=== PATIENT | female | born 1945 | race Caucasian/White ===

== ENCOUNTER 2018-08-08 04:48 | Emergency (ER) | payer OTHER ==
[~2018-08-08] VITALS: Ht 162.6 cm; Wt 81.7 kg
[~2018-08-08 04:48] MED LIST: ASPIR 8181 MG PO; ASPIRIN EC325 M1 PO; ATORVASTATIN CA40 MG PO; CARAFATE 1 GM TA1 G1 PO; CLONIDINE HCL0.2 M2 PO; DOXYCYCLINE 10100 M1; DOXYCYCLINE 10100 MG PO; HYDROCHLOROTHIA25 M2 PO; LOPRESSOR25 PO; NICOTINE TRANSD21 M1 TRANSDERM; NITROGLYCERIN0.4 MG SUBLING; PERCOCET 5-3251 EACH PO; PLAVIX 75 MG TA75 M1 PO; PROTONIX40 M1 PO; TYLENOL325 MG PO
[2018-08-08] MEDS ORDERED: HYDROCHLOROTHIA25 M2 (04:59)
[2018-08-08 05:15] LABS: ABSOLUTE BASOPHILS 0.1 thou/uL (0.0-0.2); ABSOLUTE EOSINOPHILS 0.1 thou/uL (0.0-0.7); ABSOLUTE LYMPHOCYTES 1.2 thou/uL (0.8-5.3); ABSOLUTE MONOCYTES 0.4 thou/uL (0.0-1.2); ABSOLUTE NEUTROPHILS 4.9 thou/uL (1.6-8.1); BASOPHILS 0.9 %; HEMATOCRIT 49.2 % (37.0-47.0); HEMOGLOBIN 16.5 gm/dL (12.0-15.0); LYMPHOCYTES 17.6 %; MCH 28.7 pg (26.0-34.0); MCHC 33.6 g/dL (28.0-37.0); MCV 85.3 fL (80.0-100.0); MPV 8.7 fl. (7.2-11.1); NUCLEATED RBCS 0 /100WBC; PLATELET COUNT* 207 thou/uL (150-400); POLYS 74.5 %; RBC 5.77 mil/uL (4.20-5.00); RDW-CV 15.9 % (10.5-14.5); WBC 6.5 thou/uL (4.0-11.0)
[2018-08-08 05:24] LABS: CREATININE 1.2 mg/dL (0.6-1.3); POTASSIUM 3.2 mmol/L (3.5-5.1)
[2018-08-08 05:29] LABS: ALBUMIN 3.4 g/dL (3.4-5.0); TOTAL BILIRUBIN 0.8 mg/dL (<0.1-1.0); TOTAL PROTEIN 7.2 g/dL (6.4-8.2)
[2018-08-08 05:35] LABS: URINE BLOOD NEGATIVE (Negative); URINE CLARITY CLEAR; URINE COLOR YELLOW; URINE GLUCOSE-RANDOM NEGATIVE (Negative); URINE KETONES TRACE (Negative); URINE LEUKOCYTES-REFLEX TRACE (Negative); URINE NITRITE-REFLEX NEGATIVE (Negative); URINE PROTEIN NEGATIVE (Negative); URINE SPECIFIC GRAVITY 1.025 (1.005-1.030); URINE UROBILINOGEN 0.2 E.U./dl (0.2-1.0)
[2018-08-08 05:37] LABS: ICTOTEST (BILI CONFIRMATORY) Negative (Negative); URINE BILIRUBIN 1+ (Negative)
[2018-08-08 05:45] LABS: CRYSTALS None Seen /LPF (None Seen); HYALINE CASTS 0-3 Few /LPF (None Seen); MUCUS 4-6 Moderate strn/LPF (None Seen); SQUAMOUS 4-10 Moderate /LPF (0-3); URINE RBC 0-2 Rare /HPF (0-2); URINE WBC-REFLEX 0-5 Rare /HPF (0-5)
[2018-08-08] MEDS ORDERED: MACROBID 100 M100 M1 PO (06:08)
[2018-08-08 06:31] VITALS: BP 141/47
== END 2018-08-08 06:31 | disposition home or self-care (01) ==
LOC: M.ERS 04:48
PROVIDERS: Personal Emergency Response Attendant
DX: N23 Unspecified renal colic (principal); N13.30 Unspecified hydronephrosis; F17.210 Nicotine dependence, cigarettes, uncomplicated; Z88.0 Allergy status to penicillin; Z88.2 Allergy status to sulfonamides

== ENCOUNTER 2019-12-22 07:43 | Observation (INO) | payer OTHER ==
[~2019-12-22] VITALS: Ht 162.6 cm; Wt 72.6 kg
[2019-12-22 07:43] VITALS: BP 179/63
[~2019-12-22 07:43] MED LIST changes: -ATORVASTATIN CA40 MG PO; +LIPITOR40 MG PO; +MACROBID 100 M100 M1 PO
[2019-12-22] MEDS ORDERED: KLOR-CON M2020 MEQ PO (07:50)
[2019-12-22 08:48] LABS: ABSOLUTE LYMPHOCYTES 0.7 thou/uL (0.8-5.3); ABSOLUTE MONOCYTES 0.5 thou/uL (0.0-1.2); ABSOLUTE NEUTROPHILS 5.3 thou/uL (1.6-8.1); BASOPHILS 0.7 %; EOSINOPHILS 0.7 %; HEMATOCRIT 44.5 % (37.0-47.0); HEMOGLOBIN 14.9 gm/dL (12.0-15.0); LYMPHOCYTES 11.4 %; MCH 27.1 pg (26.0-34.0); MCHC 33.4 g/dL (28.0-37.0); MCV 80.9 fL (80.0-100.0); MPV 8.9 fl. (7.2-11.1); NUCLEATED RBCS 0 /100WBC; PLATELET COUNT* 208 thou/uL (150-400); POLYS 80.2 %; RDW-CV 15.5 % (10.5-14.5); WBC 6.5 thou/uL (4.0-11.0)
[2019-12-22 08:50] LABS: CALCIUM 8.2 mg/dL (8.5-10.1); CREATININE 0.8 mg/dL (0.6-1.3); POTASSIUM 3.2 mmol/L (3.5-5.1)
[2019-12-22 09:01] LABS: ALBUMIN 2.9 g/dL (3.4-5.0); MAGNESIUM 2.2 mg/dL (1.8-2.4); TOTAL BILIRUBIN 0.6 mg/dL (<0.1-1.0); TOTAL PROTEIN 6.2 g/dL (6.4-8.2)
--- NOTE | 2019-12-22 15:40 | EKG ---
[place] [address] ELECTROCARDIOGRAM REPORT Name: TJ AGUILERA Room: [place] [address] ADM IN [facility]#: [id number] Admission: 12/22/19 Attend Phys: Dennys Ovalles, Discharge: Date of : 45 Date of Service: 12/22/19 0745 Report #: [id number] THIS REPORT FOR: //name// [facility] ED Test Date: 2019-12-22 Test Time: 07:45:45 Pat Name: TJ AGUILERA Department: Room: [facility] Gender: F Nurse Discharge Planner: ORTIZ : 1945 Requested By: Brayan Neal Order Number: [id number] MD: Levon Singh Measurements Intervals [place] Rate: 60 P: 53 [place]: 152 QRS: 66 QRSD: 86 T: 23 QT: 400 QTc: 400 Interpretive Statements Sinus rhythm Probable left atrial enlargement Compared to ECG 09/08/2016 08:31:53 T-wave abnormality less prominent Electronically Signed On 12-22-2019 15:39:32 CDT by Levon Singh [email or web address] <ELECTRONICALLY SIGNED> By: Levon Singh MD, [facility] 12/22/19 1539 0745 0745 Levon Singh MD, [facility] /EPI
[2019-12-22 15:58] VITALS: BP 158/61
--- NOTE | 2019-12-22 16:41 | NUR ---
PT ORIENTED TO ROOM AND UNIT. BED LOW AND LOCKED, SIDE RAILS UPX3, CALL LIGHT IN REACH, TELE APPLIED. WILL CONTINUE TO ASSESS.
[2019-12-22 21:14] VITALS: BP 138/51
[2019-12-23] VITALS: BP 152/66
[2019-12-23 04:00] VITALS: BP 148/64
[2019-12-23 05:11] LABS: CALCIUM 8.7 mg/dL (8.5-10.1); CREATININE 0.9 mg/dL (0.6-1.3); MAGNESIUM 2.2 mg/dL (1.8-2.4)
[2019-12-23 05:14] LABS: POTASSIUM 4.2 mmol/L (3.5-5.1)
--- NOTE | 2019-12-23 05:38 | NUR ---
PT IS ABLE TO COMMUNICATE HIS NEEDS TO STAFF EFFECTIVELY. HE HAS DENIED THE NEED FOR PAIN MEDICATION UP TO THIS TIME. PT HAD SHORT RUN OF SVT DURING THIS SHIFT, STRIP IS ON THE CHART; MD NOT PAGED RHYTHM WAS NOT SUSTAINED AND PT SLEPT THROUGH IT AND WAS ASYMPTOMATIC UPON WAKEING. POSSIBLE DISCHARGE TODAY.
--- NOTE | 2019-12-23 05:51 | NUR ---
PT IS ABLE TO COMMUNICATE HER NEEDS TO STAFF EFFECTIVELY. CURRENT PAIN MEDICATION REGIMEN HAS BEEN ADEQUATE FOR CONTROLLING HER PAIN UP TO THIS TIME. SHE HAS BEEN NPO SINCE MIDNIGHT FOR A POSSIBLE STRESS TEST LATER TODAY.
[2019-12-23 08:00] VITALS: BP 133/60
[2019-12-23] MEDS ORDERED: NITROGLYCERIN0.4 MG SUBLING (10:33)
[2019-12-23 11:05] VITALS: BP 133/60
[2019-12-23 12:39] VITALS: BP 133/60
--- NOTE | 2019-12-29 19:48 | CON ---
[address] [address] CONSULTATION Name: TJ AGUILERA James Room: [address] [place] Aleman#: [id number] Admission: 12/22/19 Attend Phys: Dennys Ovalles MD Discharge: 12/23/19 Date of : 45 Report #: [id number] THIS REPORT FOR: //name// cc: KATYA BANGURA MD, HEATHER L. MD ~ THIS REPORT FOR: //name// CC: KATYA Ovalles DATE OF SERVICE: 12/22/2019 REQUESTING PHYSICIAN: Consult has been requested by the Dr. Ovalles. INDICATION FOR CONSULTATION: Lung mass. HISTORY OF PRESENT ILLNESS: A 74-year-old female with past medical history includes a history of coronary artery disease as well as COPD. The patient is followed by her primary care physician for COPD and is treated with Stiolto Respimat at home. She has never been on oxygen or prednisone at home alf. The patient has had coronary stents in the past and takes Plavix as well as metoprolol at home as well. The patient is now here with a complaint of chest pain, which began yesterday. The patient describes this as being a significant heaviness behind the sternum. She describes this as a weight on her chest. She describes this as being not associated with respiration and coughing. The patient also reported that she has had an increase in shortness of breath since around the same position. The patient has not been complaining of orthopnea. She has had troponin I's performed, which are not elevated. She has not been coughing anymore than usual. There is no sputum. She does not have upper respiratory complaints. There is no swelling of lower extremities. She has had some body aches and leg pain; however, these are not more than her baseline. The patient reports that she has been having diarrhea for the last month or so, which she attributes to a new prescription of potassium. The patient was screened for COVID-19 on admission and was found to be negative. She has had sleep complaints. She asleep in various positions. She does not have disturbed sleep at night. She at times feels sleepy and tired during the day; however, does not doze off. REVIEW OF SYSTEMS: I asked her 12 other questions for complete review of systems. The patient's review of systems is negative except as mentioned above. PAST MEDICAL HISTORY: Coronary artery disease, status post ST segment elevation [place] in 2017. The patient is reported to have had drug-eluting stents in the past. The patient is reported to be on metoprolol as well as Plavix for coronary artery disease at home. I do not, however, [place] [id number] CONSULTATION Name: TJ AGUILERA Room: [address] [place]#: [id number] Admission: 12/22/19 Attend Phys: Dennys Ovalles MD Discharge: 12/23/19 Date of : 45 Report #: [id number] left ventricular ejection fraction available at this time. Also, history of COPD. The patient gives Stiolto Respimat at home and is followed by PCP, has now used oxygen at home. Hypertension, hyperlipidemia. HOME MEDICATIONS: [facility] and this is reviewed, includes, Plavix, Stiolto as well as metoprolol also recent addition of potassium for maintaining potassium with a prescription for hydrochlorothiazide as above. FAMILY HISTORY: There is history of heart disease in her family. ALLERGIES: PENICILLIN, SULFONAMIDE ANTIBIOTICS AND LOSARTAN ARE MENTIONED ALLERGIES. PHYSICAL EXAMINATION: GENERAL: She is alert, awake and oriented, does not appear to be in any distress at this time. VITAL SIGNS: The pulse of 62 and a blood pressure of 158/61. She is saturating 94%. She is not on supplemental oxygen. Respiratory rate was mildly elevated to 20. She is afebrile with a temperature of 36.8, body mass index is 27.5. HEENT: Head is normocephalic and atraumatic. Pupils are equal and reactive. There is no throat erythema. Airway is Mallampati 3. NECK: Does not show raised JVP, asymmetry, mass or lymph nodes. CHEST: Symmetrical expansion on inspection and palpation. On auscultation, breath sounds are bilaterally, decreased, but equal. No added sounds. HEART: Regular. There is no murmur. ABDOMEN: Soft and nontender. EXTREMITIES: Lower extremities show no edema, no calf tenderness. SKIN: Dry and intact. NEUROLOGICAL: Moves all extremities bilaterally, equally and spontaneously with no focal deficit identified. DIAGNOSTIC DATA: The patient did have a CTA chest performed. This was reviewed. I reviewed both the films and report. In summary, there is no pulmonary embolism. There is some vague radiopaque densities noted posteriorly and inferiorly. I, however, do not identify any definite infiltrate. There is a mass in the right lung, which is about 2.5 cm in size. She also has some right hilar lymphadenopathy. The patient's CBC and chemistries are in [facility]. These are reviewed. COVID screen was negative initially. LABORATORY DATA: The patient had a troponins performed 3 times of these were these are 0.06. ASSESSMENT AND PLAN: 1. Lung mass. The patient does have a large lung mass in the right lung. This is an incidental finding and likely has been present for some time. It appears unlikely that the patient's symptoms are related [place] [id number] CONSULTATION Name: TJ AGUILERA Room: [address] [place] Aleman#: [id number] Admission: 12/22/19 Attend Phys: Dennys Oavlles MD Discharge: 12/23/19 Date of : 45 Report #: [id number] Unfortunately, the configuration of this mass is consistent with a malignancy. A fungal infection will be much less likely, but possible etiology of this mass. The location of this mass is such that it cannot be approached by a regular bronchoscopy. It may be possible to approach this mass with bronchoscopy with navigation. Certainly, this mass does appear to be approachable using a CT-guided lung biopsy; however, it is noted that this mass is located deep and therefore, there will be a significant risk of pneumothorax. If a CT-guided biopsy is performed, it should, however, be possible to easily treat such as pneumothorax in most cases by placement of a chest tube for a few days. If any procedure has performed on the patient's chest. It will be highly desirable that Plavix is held first for 5-7 days where the patient appears to have unstable angina at this time. This, may however, not be advisable from a cardiac point of view. Therefore, I recommend evaluating and treating her for her symptoms, which appear to be of cardiac origin first. If no procedure involving administration of an IV dye, it is planned by Cardiology after waiting 48 hours since the last CTA chest being performed we can consider obtaining a CT of the abdomen and pelvis as well as a bone scan then assess as to whether any other more superficial lesions, which may be easier to biopsy at present. In case, an invasive procedure to evaluate this malignancy is not performed during this hospitalization. Then I strongly favor obtaining a PET scan soon after her discharge to evaluate this further. If no other more superficial lesions are identified by a PET scan and it is not advisable to hold Plavix for a week from a Cardiology point of view and evaluating this mass further may be a challenge. 2. Chronic obstructive pulmonary disease. The patient is an active smoker. It appears to me that she does have some bronchospasm; however, this may be her baseline. I do not see any definite evidence of chronic obstructive pulmonary disease exacerbation. Regardless in order to reduce stress on her heart rate went ahead and ordered 2 doses of Solu-Medrol. Based on her response additional amounts of steroids may also be needed. For now, I only ordered p.r.n. Xopenex. Note that the patient does take a long-acting beta-2 agonist as well as anticholinergic agent at home. Therefore, we may be inclined to start her on a regular scheduled nebulized bronchodilators as soon. 3. Chest pain and shortness of breath. The patient symptoms are consistent with unstable angina. The Cardiology service is on the case. Therefore, would defer management to them. 4. Daytime sleepiness/sleep disturbances. I have suspicion that the patient may have underlying obstructive sleep apnea, evaluation is deferred for now. We will plan on obtaining an outpatient sleep study or at least a nocturnal pulse oximetry later. [address] [address] CONSULTATION Name: TJ AGUILERA Room: [place] [address] [place] Aleman#: [id number] Admission: 12/22/19 Attend Phys: Dennys Ovalles MD Discharge: 12/23/19 Date of : 45 Report #: [id number] Thanks for this consultation. <ELECTRONICALLY SIGNED> By: Rajesh Salamanca MD 12/29/19 1948 22 2222Abarbara Salamanca MD /nt
== END 2019-12-23 13:10 | disposition home or self-care (01) ==
LOC: M.ERS 07:43 → M.TBA-ER 10:50 → M.2W 10:50
PROVIDERS: Emergency Medicine Emergency Medical Services; ADMIT Internal Medicine; ATTEND Internal Medicine
DX: I25.110 Atherosclerotic heart disease of native coronary artery with unstable angina pectoris (principal); E87.6 Hypokalemia; R91.8 Other nonspecific abnormal finding of lung field; R42 Dizziness and giddiness; I10 Essential (primary) hypertension; J44.9 Chronic obstructive pulmonary disease, unspecified; E78.5 Hyperlipidemia, unspecified; F17.210 Nicotine dependence, cigarettes, uncomplicated

== ENCOUNTER → 2019-12-27 | Outpatient (CLI) | payer OTHER ==
[~2019-12-27] MED LIST changes: +KLOR-CON M2020 MEQ PO
--- NOTE | 2019-12-27 16:46 | CARDNUC ---
[place] [address] CARDIAC NUCLEAR IMAGING REPORT Name: TJ AGUILERA Room: [facility]#: [id number] Admission: 12/27/19 Attend Phys: Petar Banda, Discharge: Date of : 45 Date of Service: 12/27/19 1646 Report #: [id number] THIS REPORT FOR: cc: KATYA BANGURA MD, HEATHER L. MD Liston, Michael J. MD [facility] ~ ADDENDUM APPROVED REPORT Study performed: 12/27/2019 14:53:12 Exam: Nuclear Stress Test Indication: Chest pain Patient Location: Out-Patient Stress Tech: Maryann Carvalho Stress Nurse: Jacinto Costa Tech:KNVG Gonsalez Ht: 5 ft 4 in Wt: 154 lbs BSA: 1.75 m2 BMI: 26.43 Medical History Medical History: CAD s/p DC, CAD s/p stent, Hyperlipidemia, HTN, Smoking Medications: Atorvastatin, Plavix, metoprolol tartrate, Nitrostat, clonidine, hydrochlorothiazide, potassium chloride Allergies: Losartan, penicillin, sulfa Cardiac Risk Factors: Age greater than 45, hyperlipidemia, hypertension, family history of coronary artery disease and tobacco use Previous Cardiac Procedures: PCI Meds Held (24 hrs): Metoprolol, Nitroglycerin Stress Test Details Stress Test: Pharmacologic stress was paired with low level exercise. Reason for pharmacologic stress test: Right knee weakness. HR Resting HR: 65 bpm Max Heart Rate (APMHR): 146 bpm Max HR Achieved: 119 bpm Target HR (85% APMHR): 124 bpm % of APMHR: 81 Recovery HR: 96 [place] [address] CARDIAC NUCLEAR IMAGING REPORT Name: TJ AGUILERA Room: [facility]#: [id number] Admission: 12/27/19 Attend Phys: Petar Banda, Discharge: Date of : 45 Date of Service: 12/27/19 1646 Report #: [id number] Resting BP: 175/77 mmHg Max BP: 180/71 mmHg ECG Resting ECG: Sinus Rhythm Stress ECG: Sinus Tachycardia ST Change: Horizontal ST depression Maximum ST Deviation: 0.5 mm Arrhythmia: None Recovery ECG: Sinus Rhythm Recovery ST Change: Horizontal ST depression Recovery ST Deviation: 0.5 mm Recovery Arrhythmia: None Clinical Reason for Termination: Completed protocol The patient had mild chest discomfort with walking Lexiscan protocol felt to be due to medication effect in light of myocardial perfusion imaging findings. Nurse Comments The patient was and able to walk a treadmill due to right knee weakness. Stress ECG Conclusion Baseline twelve-lead EKG shows sinus rhythm without significant ST segment or T wave abnormality. EKGs obtained during and post walking Lexiscan protocol show 0.[address] segment depression in the inferior leads. There were no stress-induced arrhythmias. NM EXAM: Myocardial Perfusion REST/STRESS Imaging Protocol: Rest Tc-99m/Stress Tc-99m 1 day Resting Data Rest SPECT myocardial perfusion imaging was performed in supine position 30 minutes following the intravenous injection of 10.0 mCi of Tc-99m Sestamibi. Time of rest injection: 1250 Date: 12/27/2019 The images were gated to evaluate regional wall motion and calculate left ventricular ejection fraction. Administration Route: IV Administration Site: Right Hand Pharmacologic Stress Pharmacologic stress test was performed by injecting Regadenoson 0.4 mg IV push followed by the intravenous injection of 31[place] [address] CARDIAC NUCLEAR IMAGING REPORT Name: TJ AGUILERA [id number] Admission: 12/27/19 Attend Phys: Petar Banda, Discharge: Date of : 45 Date of Service: 12/27/19 1646 Report #: [id number] Tc-99m Sestamibi. Time of stress injection: 1450 Date: 12/27/2019 Administration Route: IV Administration Site: Right Hand Gated Stress SPECT was performed 40 minutes after stress injection. The images were gated to evaluate regional wall motion and calculate left ventricular ejection fraction. Prone imaging was performed. Study Quality Study: Good Artifact: No artifact Study Data At rest, the left ventricular ejection fraction was 84%.. Post stress, the left ventricular ejection was 79%.. TID = 0.89. Perfusion Perfusion studies obtained at rest and post walking Lexiscan stress showed uniform uptake of the radioisotope throughout the myocardium with no defect to suggest infarct or ischemia. Wall Motion Normal left ventricular wall motion. Nuclear Conclusion ECG Findings: equivocal Clinical Findings: equivocal Nuclear Findings: negative for ischemia Exercise Capacity: not assessed Left Ventricular Function: normal Risk Study: low Clinical and EKG findings are equivocal and likely due to medication effect in light of myocardial perfusion imaging findings. Perfusion images show no defect to suggest infarct or ischemia. LV systolic function is normal on gated studies. This appears to be a low risk study. <Conclusion> Baseline twelve-lead EKG shows sinus rhythm without significant ST segment or T wave abnormality. EKGs obtained during [place] [address] CARDIAC NUCLEAR IMAGING REPORT Name: TJ AGUILERA Room: [facility]#: [id number] Admission: 12/27/19 Attend Phys: Petar Banda, Discharge: Date of : 45 Date of Service: 12/27/19 1646 Report #: [id number] Lexiscan protocol show 0.[address] segment depression in the inferior leads. There were no stress-induced arrhythmias. <ELECTRONICALLY SIGNED> By: Petar Banda MD, FACC 12/27/19 1646 45 164 Petar Banda MD, FACC /INF
== END ==
LOC: M.NUC 12:31 → M.CRD 01-09 13:00 → M.NUC 01-09 13:00
PROVIDERS: ATTEND Internal Medicine Cardiovascular Disease
DX: I25.10 Atherosclerotic heart disease of native coronary artery without angina pectoris (principal); R07.9 Chest pain, unspecified

== ENCOUNTER 2020-02-09 06:28 | Inpatient (IN) | payer OTHER ==
[~2020-02-09] VITALS: Ht 162.6 cm; Wt 75.7 kg
--- NOTE | ~2020-02-09 | CON ---
[address] [address] CONSULTATION Name: TJ AGUILERA Room: [address] IN M.R.#: [id number] Admission: 02/09/20 Attend Phys: Mary Martino MD Discharge: Date of : 45 Report #: [id number] THIS REPORT FOR: //name// cc: KATYA BANGURA MD, HEATHER L. MD ~ THIS REPORT FOR: //name// CC: Rajesh Martino DATE OF SERVICE: 02/09/2020 REQUESTING PHYSICIAN: Cristobal Alcaraz DO INDICATION FOR CONSULTATION: Shortness of breath. HISTORY OF PRESENT ILLNESS: This is a 74-year-old female. Past medical history includes a history of coronary artery disease as well as COPD. Had recently seen the patient in this hospital. The patient had presented with chest pain and chest heaviness. The patient at that time had had a CT chest performed, which was negative for pulmonary emboli; however, had shown a large mass in the right lung. The patient was evaluated by Cardiology and then was discharged and then subsequently I did see her in the office with a followup PET scan. The patient has a large mass; however, this was fairly deep and there was a high risk of causing pneumothorax if a CT-guided biopsy is performed. The patient's FEV1 was also significantly reduced, being just above 1 liter. I had therefore requested Dr. Leach to perform a navigational bronchoscopy at [facility]. The patient did have the bronchoscopy performed, the patient reports on 02/05. She reports that since then, she has been having increase in shortness of breath. Also, the patient reports that she has had sputum production, which is new for her. The patient says that she has not looked at the sputum and therefore is unable to describe it. She is unaware as to whether she had any hemoptysis or not. Dr. Leach did order an antibiotic as well as prednisone for the patient. The patient says that she did not take the antibiotic and took the prednisone only. However, her shortness of breath continued to worsen and therefore she came to the Emergency Room here. She at this time is no longer having chest pain, reports ongoing shortness of breath with cough and sputum production. The patient does not report upper respiratory complaints. There is no increase in swelling of lower extremities. There is no calf pain. She is not complaining of nausea or vomiting. She has had some diarrhea for the last couple of months, which she had contributed to a potassium prescription. There is no new diarrhea. The patient has had daytime sleepiness, which remains at baseline. REVIEW OF SYSTEMS: For 12 points is negative [place] [address] CONSULTATION Name: ALETJ LEE Room: [address] IN M.R.#: [id number] Admission: 02/09/20 Attend Phys: Mary Martino MD Discharge: Date of : 45 Report #: [id number] PAST MEDICAL HISTORY: COPD, I recently performed a spirometry in the office, which shows an FEV1 of 1.07 liters, which was 50% of the reference range. We recently performed a nocturnal pulse oximetry as well, which showed hypoxemia. The patient since then has been started on oxygen while asleep. Large lung mass consistent with a malignancy with recent PET scan performed in [place] also suspicious of a malignancy. Biopsy results from recent navigational bronchoscopy are pending. Coronary artery disease, the patient is on Plavix long-term and reports that she did restart it since she had the bronchoscopy. There is a recent stress test performed. The report is in [employer] and is reviewed and is reported to be a low-risk study. History of myocardial infarction in 2017, history of drug-eluting stents being placed at that time, also hypertension and hyperlipidemia. CURRENT MEDICATIONS: List in [employer] reviewed. HOME MEDICATIONS: List in [employer] reviewed. She takes Stiolto as well as Plavix at home, also has been on potassium and hydrochlorothiazide. FAMILY HISTORY: There is a history of heart disease in her family. SOCIAL HISTORY: There is an extensive history of smoking. The patient in fact is a current active smoker, around 2 packs a day. No known history of heavy alcohol use or illegal drug use. ALLERGIES: THE PATIENT REPORTS ALLERGY TO PENICILLIN WELL SULFONAMIDE ANTIBIOTICS AND LOSARTAN. The patient has had cephalosporins without any reaction. PHYSICAL EXAMINATION: GENERAL: She is alert, awake and oriented, does not appear to be in any distress. VITAL SIGNS: Has a pulse of 81 and a blood pressure of 132/53. She is oxygenating 93%. She is on 2 liters of oxygen. I do not have a room air O2 saturation during this admission. Note that the patient previously was only on oxygen at night before this admission. Her respiratory rate is around 16-18, afebrile with a temperature of 36.6. Body mass index is elevated to 29. HEENT: Head is normocephalic and atraumatic. Pupils are equal and reactive. She does have a narrow airway. There is no throat erythema. NECK: Does not show raised JVP, asymmetry, mass, or lymph nodes. CHEST: Symmetrical expansion on inspection and palpation. On auscultation, breath sounds are bilaterally equal but decreased. Expirations are prolonged. I do not hear any added sounds. HEART: Regular. There is no murmur. ABDOMEN: Soft and nontender. EXTREMITIES: Lower extremities show no edema and no calf tenderness. [place] [id number] CONSULTATION Name: TJ AGUILERA AYAKA Room: [address] IN .R.#: [id number] Admission: 02/09/20 Attend Phys: Mary Martino MD Discharge: Date of : 45 Report #: [id number] SKIN: Dry and intact. NEUROLOGICAL: Moves all extremities bilaterally equally and spontaneously with no focal deficit identified. LABORATORY DATA: The patient's CT chest is reviewed and I called and discussed with Dr. Pina as well. Pulmonary arteries are not adequately evaluated in this study. Previously known masses seen. There were some infiltrates; however, these do not appear to be new. There is some amount of fluid present on the right side at the bronchial airways; however, this will be expected as the patient just had a bronchoscopy. The patient[facility] as well [facility] and these are reviewed. Coagulation studies show a mild elevation in D-dimer at 0.55. COVID-19 antigen was negative. ASSESSMENT/PLAN: 1. Shortness of breath. At first glance, it appears likely that the patient's shortness of breath is secondary to bronchospasm; however, additional etiologies including the possibility of thromboembolism as well as angina equivalent are not fully ruled out. 2. Chronic obstructive pulmonary disease exacerbation. I agree with Solu-Medrol as well as nebulized bronchodilators as currently prescribed. 3. Lung mass. This is strongly suspicious of a malignancy. The patient had a recent PET scan at [facility] as above. We will try to obtain the biopsy report from [facility]. 4. Pulmonary infiltrates. There are some infiltrates noted; however, these are not new. Therefore, there is no definite evidence of pneumonia. Regardless if the patient reports sputum production, I agree with treating her with Levaquin. I will go ahead and order a sputum culture as well as nasal swab for methicillin-resistant Staphylococcus aureus as well. The patient is unaware of the color of sputum. Therefore, it is unknown as to whether the patient has had any hemoptysis. She is on Plavix daily. Since this is not clarified as to whether the patient has had hemoptysis, I decided to skip the dose of Plavix tomorrow. She unless otherwise ordered will start Plavix again on Wednesday. 5. Coronary artery disease. As above, the patient did have symptoms consistent with angina in the past. Her stress test appears to be low risk according to the Cardiology Service. I will go ahead and obtain an echo. In case the patient fails to improve, then suggest obtaining a Cardiology opinion as well. Her troponin I's are negative. 6. Evaluation for thromboembolic phenomena. The CT chest is with IV contrast; however, I did call and discuss with Dr. Pina. The pulmonary arteries are not adequately evaluated in this study. I would therefore go ahead and do venous Dopplers. I suggest also following the D-dimer levels. In case the patient fails to improve and the D-dimer trends upwards, then in that case I would recommend considering a CTA chest; however, we will wait at least 24-48 hours as the patient has just received IV dye. 7. Nocturnal hypoxemia/hypersomnia. The patient also appears to have obstructive sleep apnea. Therefore, I would have a low threshold of placing her [address] [address] CONSULTATION Name: TJ AGUILERA Room: [address] IN .R.#: [id number] Admission: 02/09/20 Attend Phys: Mary Martino MD Discharge: Date of : 45 Report #: [id number] on a BiPAP in case her condition declines. Thanks for this consultation. By: [id number] Salamanca MD /nt
[~2020-02-09 06:28] MED LIST changes: +FISH OIL 1,0001 EAC9 PO; +METOPROLOL TART25 MG PO; +PREDNISONE 10 M10 M1 PO; +STIOLTO RESPIMAT4 GM INH; +VENTOLIN HFA 1818 GM INH; +VITAMIN B125000 MCG PO; +VITAMIN D3125 MC1 PO
[2020-02-09 06:42] VITALS: BP 139/59
[2020-02-09 08:16] LABS: HEMATOCRIT 41.4 % (37.0-47.0); HEMOGLOBIN 13.7 gm/dL (12.0-15.0); MCV 78.8 fL (80.0-100.0); MPV 8.7 fl. (7.2-11.1); NUCLEATED RBCS 0 /100WBC; PLATELET COUNT* 243 thou/uL (150-400); RBC 5.26 mil/uL (4.20-5.00); RDW-CV 17.4 % (10.5-14.5)
[2020-02-09 08:25] LABS: CALCIUM 8.3 mg/dL (8.5-10.1); POTASSIUM 4.1 mmol/L (3.5-5.1)
[2020-02-09 08:30] LABS: APTT 23.8 Seconds (25.0-31.3); PROTIME 10.4 Seconds (9.20-11.50)
[2020-02-09 08:36] LABS: ALBUMIN 3.1 g/dL (3.4-5.0); TOTAL BILIRUBIN 0.7 mg/dL (<0.1-1.0); TOTAL PROTEIN 6.6 g/dL (6.4-8.2)
[2020-02-09 09:10] LABS: ABSOLUTE LYMPHOCYTES 0.7 thou/uL (0.8-5.3); ABSOLUTE NEUTROPHILS 4.3 thou/uL (1.6-8.1); PLATELET ESTIMATE ADEQUATE
[2020-02-09 09:11] LABS: ANISOCYTOSIS Occasional; MICROCYTES Occasional
--- NOTE | 2020-02-09 10:14 | EKG ---
[place] [address] ELECTROCARDIOGRAM REPORT Name: TJ AGUILERA Room: [place] [address] ADM IN [facility].#: [id number] Admission: 02/09/20 Attend Phys: Mary Martino, Discharge: Date of : 45 Date of Service: 02/09/20 0636 Report #: [id number] THIS REPORT FOR: //name// [facility] ED Test Date: 2020-02-09 Test Time: 06:36:56 Pat Name: TJ AGUILERA Department: Room: [facility] Gender: F Lacer And Tier: VIKTORIA : 1945 Requested By: Jerrell Scherer Order Number: [id number] MD: Sam Blanco Measurements Intervals [place] Rate: 72 P: 52 [place]: 151 QRS: 44 QRSD: 88 T: 16 QT: 373 QTc: 409 Interpretive Statements Sinus rhythm Probable left atrial enlargement Compared to ECG 12/22/2019 07:45:45 No significant changes Electronically Signed On 02-09-2020 10:14:00 CDT by Sam Blanco [email or web address] <ELECTRONICALLY SIGNED> By: Sam Blanco MD, [facility] 02/09/20 1014 0636 0636 Sam Blanco MD, [facility] /EPI
[2020-02-09 12:51] VITALS: BP 151/61
[2020-02-09 13:00] VITALS: BP 132/53
--- NOTE | 2020-02-09 14:39 | NUR ---
PT ADMITTED TO ROOM 202 VIA CART FROM ED AT APPROX 1300, REPORT RECEIVED FROM JEANNINE GREGORIO. PT HAD NO C/O PAIN OR SHORTNESS OF BREATH BUT STATES SHE BECOMES SHORT OF BREATH WHEN AMBULATING EVEN A FEW FEET. DAUGHTER IN LAW IN ROOM W/ PT, MEDS RECONCILED, ADMISSION ASSESSMENT AND HX COMPLETED CHARTED, SEPSIS SCREENING COMPLETED, NEGATIVE, PT ORIENTED TO ROOM AND CALL LIGHT, MEDS PER AUG, HOURLY ROUNDING OBSERVED, PT EDUCATED ON CALLING BEFORE GETTING UP FIRST TIME TO PREVENT FALLS, CALL LIGHT W/IN REACH, WILL CONTINUE POC.
[2020-02-09 20:00] VITALS: BP 115/43
[2020-02-10] VITALS: BP 136/51
[2020-02-10 04:00] VITALS: BP 142/60
[2020-02-10 04:47] LABS: ABSOLUTE LYMPHOCYTES 0.6 thou/uL (0.8-5.3); MPV 8.7 fl. (7.2-11.1); RDW-CV 17.3 % (10.5-14.5)
[2020-02-10 04:49] LABS: ABSOLUTE MONOCYTES 0.3 thou/uL (0.0-1.2); ABSOLUTE NEUTROPHILS 10.2 thou/uL (1.6-8.1); HEMATOCRIT 42.3 % (37.0-47.0); HEMOGLOBIN 13.7 gm/dL (12.0-15.0); LYMPHOCYTES 5.8 %; MCH 25.4 pg (26.0-34.0); MCHC 32.4 g/dL (28.0-37.0); MCV 78.4 fL (80.0-100.0); MONOCYTES 2.8 %; NUCLEATED RBCS 0 /100WBC; PLATELET COUNT* 260 thou/uL (150-400); POLYS 91.4 %; RBC 5.39 mil/uL (4.20-5.00); WBC 11.2 thou/uL (4.0-11.0)
[2020-02-10 05:07] LABS: CALCIUM 8.4 mg/dL (8.5-10.1); CREATININE 1.1 mg/dL (0.6-1.3); MAGNESIUM 2.2 mg/dL (1.8-2.4); TOTAL BILIRUBIN 0.6 mg/dL (<0.1-1.0); TOTAL PROTEIN 6.4 g/dL (6.4-8.2)
--- NOTE | 2020-02-10 07:20 | NUR ---
ASSUMED PT CARE AT 1910. NURSING ASSESSMENT COPMLETED AT START OF SHIFT. PT AAOX4, SR ON SOLUTIONS OPERATOR. HOURLY ROUNDING COMPLETED. CONTINUES ON 2L O2 VIA NC. C/O SOA WITH ACTIVITY. CALL LIGHT WITHIN REACH. NEGATIVE SEPSIS SCREENING THIS SHIFT.
[2020-02-10 08:00] VITALS: BP 129/62
[2020-02-10] MEDS ORDERED: LEVAQUIN 750 M750 MG PO (11:38)
[2020-02-10 12:03] VITALS: BP 135/61
--- NOTE | 2020-02-10 15:44 | NUR ---
ASSUMED PT CARE AT 0730, PT AOX4, HAS NO C/O PAIN OR SHORTNESS OF BREATH. PT WALKED AROUND UNIT THIS MORNING AND STATES SHE DIDN'T FEEL SHORT OF BREATH AT ANY POINT. DR BRENNER WORKED W/ PT, SEE NOTES. PT GOAL IS TO REMAIN FREE FROM SHORTNESS OF BREATH AND CONTINUE INCREASING ACTIVITY. AM ASSESSMENT CHARTED, MEDS PER MAR, HOURLY ROUNDING OBSERVED, PT UP AD DEVIN, CALL LIGHT W/IN REACH, WILL CONTINUE POC.
[2020-02-10 16:00] VITALS: BP 116/48
[2020-02-10 20:00] VITALS: BP 141/52
[2020-02-11] VITALS: BP 126/50
[2020-02-11 04:00] VITALS: BP 116/55
--- NOTE | 2020-02-11 05:54 | NUR ---
ASSUMED PT CARE AT 1910. NURSING ASSESSMENT COMPLETED AT START OF SHIFT. PT O2 SAT IN LOW 80'S AFTER AMBULATION TO BATHROOM WITHOUT O2. PLACED PATIENT ON 2L NC. SR/SB ON ACCREDITATION SPECIALIST. HOURLY ROUNDING COMPLETED. HOURLY ROUNDING COMPLETED. CALL LIGHT WITHIN REACH.
[2020-02-11 08:00] VITALS: BP 122/53
[2020-02-11] MEDS ORDERED: PREDNISONE 10 M10 MG PO (09:21)
[2020-02-11 11:11] VITALS: BP 122/53
--- NOTE | 2020-02-11 12:41 | NUR ---
ASSUMED PT CARE AT 0730, PT AOX4 AND HAD NO C/O PAIN OR SHORTNESS OF BREATH. PT WORKED W/ DR BRENNER THIS MORNING AND WAS CLEARED TO GO HOME, PT AMBULATED THE HALLS THIS MORNING AND HAD NO BREATHING ISSUES OR SHORTNESS OF BREATH THEN EITHER. DC ORDERS RECEIVED. DC INSTRUCTIONS, CARE NOTES, SCRIPTS SENT TO PHARMACY, F/U APPTS GIVEN TO PT, PT COMMUNICATES UNDERSTANDING OF DC TEACHING. AM ASSESSMENT CHARTED, MEDS PER MAR, HOURLY ROUNDING OBSERVED, CALL LIGHT W/IN REACH, PT UP AD DEVIN, IV AND BROACH GRINDER REMOVED, PT DC'D W/ ALL PERSONAL BELONGINGS AND PAPERWORK VIA W/ NURSING STAFF TO SON'S PERSONAL VEHICLE AT APPROX 1240
== END 2020-02-11 12:40 | disposition home or self-care (01) | DRG 177 ==
LOC: M.ERS 06:28 → M.TBA-ER 09:00 → M.2W 09:00
PROVIDERS: Family Medicine; Internal Medicine; Internal Medicine Critical Care Medicine; ADMIT Internal Medicine; ATTEND Internal Medicine
DX: J69.0 Pneumonitis due to inhalation of food and vomit (principal); J96.01 Acute respiratory failure with hypoxia; N17.9 Acute kidney failure, unspecified; J44.1 Chronic obstructive pulmonary disease with (acute) exacerbation; E44.1 Mild protein-calorie malnutrition; C34.90 Malignant neoplasm of unspecified part of unspecified bronchus or lung; E04.1 Nontoxic single thyroid nodule; I25.10 Atherosclerotic heart disease of native coronary artery without angina pectoris; F17.210 Nicotine dependence, cigarettes, uncomplicated; N18.3 Chronic kidney disease, stage 3 (moderate); Z60.2 Problems related to living alone; K21.9 Gastro-esophageal reflux disease without esophagitis; E78.5 Hyperlipidemia, unspecified; I12.9 Hypertensive chronic kidney disease with stage 1 through stage 4 chronic kidney disease, or unspecified chronic kidney disease; G47.10 Hypersomnia, unspecified; Z20.828 Contact with and (suspected) exposure to other viral communicable diseases; Z68.28 Body mass index [BMI] 28.0-28.9, adult; I25.2 Old myocardial infarction; Z95.5 Presence of coronary angioplasty implant and graft; Z86.73 Personal history of transient ischemic attack (TIA), and cerebral infarction without residual deficits; Z88.0 Allergy status to penicillin; Z88.2 Allergy status to sulfonamides; Z88.8 Allergy status to other drugs, medicaments and biological substances; Z79.899 Other long term (current) drug therapy; Z80.8 Family history of malignant neoplasm of other organs or systems

== ENCOUNTER → 2020-04-11 | Outpatient (CLI) | payer OTHER ==
[~2020-04-11] VITALS: Ht 162.6 cm; Wt 73.5 kg
[~2020-04-11] MED LIST changes: +LEVAQUIN 750 M750 MG PO; +PREDNISONE 10 M10 MG PO
[2020-04-11 09:05] VITALS: BP 141/84; BP 142/58
[2020-04-11 09:15] LABS: HEMATOCRIT 39.1 % (37.0-47.0); HEMOGLOBIN 12.6 gm/dL (12.0-15.0); MCH 24.5 pg (26.0-34.0); MCHC 32.3 g/dL (28.0-37.0); MCV 75.7 fL (80.0-100.0); MPV 8.4 fl. (7.2-11.1); RBC 5.16 mil/uL (4.20-5.00); RDW-CV 17.5 % (10.5-14.5); WBC 6.8 thou/uL (4.0-11.0)
[2020-04-11 09:22] LABS: APTT 21.7 Seconds (25.0-31.3); PROTIME 10.5 Seconds (9.20-11.50)
[2020-04-11 11:45] VITALS: BP 152/66
== END | disposition home or self-care (01) ==
LOC: M.INT 08:04
PROVIDERS: ATTEND Radiology Diagnostic Radiology
DX: C34.91 Malignant neoplasm of unspecified part of right bronchus or lung (principal); I11.9 Hypertensive heart disease without heart failure; E78.5 Hyperlipidemia, unspecified; I25.10 Atherosclerotic heart disease of native coronary artery without angina pectoris; J44.1 Chronic obstructive pulmonary disease with (acute) exacerbation; Z86.73 Personal history of transient ischemic attack (TIA), and cerebral infarction without residual deficits; Z87.891 Personal history of nicotine dependence; Z82.49 Family history of ischemic heart disease and other diseases of the circulatory system; Z88.0 Allergy status to penicillin; Z88.1 Allergy status to other antibiotic agents; Z88.2 Allergy status to sulfonamides; Z88.8 Allergy status to other drugs, medicaments and biological substances; Z79.899 Other long term (current) drug therapy; Z98.890 Other specified postprocedural states

== ENCOUNTER 2020-12-24 10:38 | Inpatient (IN) | payer OTHER ==
[~2020-12-24] VITALS: Ht 162.6 cm; Wt 71.2 kg
--- NOTE | ~2020-12-24 | EKG ---
[place] [address] ELECTROCARDIOGRAM REPORT Name: TJ AGUILERA Room: [address] ADM IN M.R.#: [id number] Admission: 12/24/20 Attend Phys: Yane Amezcua Discharge: Date of : 45 Date of Service: 12/24/20 1139 Report #: [id number] THIS REPORT FOR: //name// [facility] ED Test Date: 2020-12-24 Test Time: 11:39:29 Pat Name: TJ AGUILERA Department: Room: [facility] Gender: F Resourcing Consultant: PARAMJIT : 1945 Requested By: Jerrell Scherer Order Number: [id number] MD: Measurements Intervals Gibbs Rate: 80 P: 77 ID: [id number] QRS: 62 QRSD: 87 T: 22 QT: 361 QTc: 417 Interpretive Statements Sinus rhythm Probable left atrial enlargement Low voltage, precordial leads Compared to ECG 10/08/2020 10:30:34 Low QRS voltage now present Electronically Signed On 12-24-2020 14:46:32 CDT by Petar Banda [email or web address] By: 1139 1139 Epiphany Epiphany, /ANISHA
[~2020-12-24 10:38] MED LIST changes: +CLONIDINE HCL0.1 MG PO; -CLONIDINE HCL0.2 M2 PO; +HYDROCHLOROTHIA25 M1 PO; +PROTONIX40 M2 PO
[2020-12-24 10:50] VITALS: BP 83/46
[2020-12-24 11:33] LABS: HEMATOCRIT 38.1 % (37.0-47.0); HEMOGLOBIN 13.1 gm/dL (12.0-15.0); MCH 28.4 pg (26.0-34.0); MCHC 34.4 g/dL (28.0-37.0); MCV 82.6 fL (80.0-100.0); MPV 8.9 fl. (7.2-11.1); NUCLEATED RBCS 1 /100WBC; PLATELET COUNT* 80 thou/uL (150-400); RBC 4.61 mil/uL (4.20-5.00); RDW-CV 15.2 % (10.5-14.5)
[2020-12-24 11:43] LABS: CALCIUM 8.2 mg/dL (8.5-10.1); CREATININE 1.1 mg/dL (0.6-1.3); POTASSIUM 3.2 mmol/L (3.5-5.1)
[2020-12-24 11:53] LABS: ALBUMIN 2.9 g/dL (3.4-5.0); TOTAL BILIRUBIN 0.9 mg/dL (<0.1-1.0); TOTAL PROTEIN 6.3 g/dL (6.4-8.2)
[2020-12-24 12:08] LABS: ABSOLUTE LYMPHOCYTES 0.2 thou/uL (0.8-5.3); ABSOLUTE NEUTROPHILS 0.8 thou/uL (1.6-8.1); ANISOCYTOSIS 1+; PLATELET ESTIMATE DECREASED; POIKILOCYTOSIS 1+
[2020-12-24] MEDS ORDERED: PLAVIX 75 MG TA75 M1 PO (13:46)
[2020-12-24] MEDS ORDERED: NITROSTAT0.4 M1 SUBLING (13:48)
[2020-12-24 13:57] LABS: URINE BLOOD TRACE (Negative); URINE CLARITY CLEAR; URINE COLOR YELLOW; URINE GLUCOSE-RANDOM NEGATIVE (Negative); URINE KETONES NEGATIVE (Negative); URINE LEUKOCYTES-REFLEX NEGATIVE (Negative); URINE NITRITE-REFLEX NEGATIVE (Negative); URINE PROTEIN 1+ (Negative); URINE SPECIFIC GRAVITY >= 1.030 (1.005-1.030); URINE UROBILINOGEN 0.2 E.U./dl (0.2-1.0)
[2020-12-24 14:07] LABS: URINE BILIRUBIN 1+ (Negative)
[2020-12-24 14:08] LABS: ICTOTEST (BILI CONFIRMATORY) Negative (Negative)
[2020-12-24 14:20] VITALS: BP 113/50
[2020-12-24 14:44] VITALS: BP 81/46
[2020-12-24 17:28] VITALS: BP 102/36
--- NOTE | 2020-12-24 18:43 | NUR ---
Pt admitted from ED this afternoon. Pt reports she finished 6 weeks of chemotherapy 6 months ago (lung CA). States she lives alone, but children live in mobile homes on her property and are very supportive. Pt on 1.5L O2 per NC currently, and states she uses 2L O2 at night at home. BP 80s/40s upon admission, then 100s/30s this afternoon. Pt asymptomatic. IVF infusing. Afebrile. Denies pain. Will continue to monitor.
[2020-12-24 20:05] VITALS: BP 118/44
[2020-12-24 23:10] LABS: INFLUENZA A ANTIGEN Negative (Negative); INFLUENZA B ANTIGEN Negative (Negative)
[2020-12-25] VITALS (7 sets, daily range): BP systolic 90–133; BP diastolic 36–65
--- NOTE | 2020-12-25 01:36 | NUR ---
ASSUMED CARE OF PT AT 1900. PT IS ALERT AND ORIENTED. PERRLA. NO COMPLAINTS OF PAIN. BLOOD PRESSURE WAS LOW. PT BOLUSED WITH 1 LITER. PT IS IN SINUS RYTHM ON THE TELEMETRY. PT IS RESTING COMFORTABLY IN BED. RESPIRATIONS ARE EVEN AND NONLABORED. WILL CONTINUE TO MONITOR PT.
[2020-12-25 09:49] LABS: ABSOLUTE LYMPHOCYTES 0.1 thou/uL (0.8-5.3); ABSOLUTE MONOCYTES 0.1 thou/uL (0.0-1.2); ABSOLUTE NEUTROPHILS 0.9 thou/uL (1.6-8.1); BASOPHILS 0.9 %; HEMOGLOBIN 11.3 gm/dL (12.0-15.0); RBC 3.99 mil/uL (4.20-5.00)
[2020-12-25 09:51] LABS: EOSINOPHILS 0.2 %; HEMATOCRIT 32.7 % (37.0-47.0); LYMPHOCYTES 8.1 %; MCH 28.3 pg (26.0-34.0); MCHC 34.4 g/dL (28.0-37.0); MCV 82.1 fL (80.0-100.0); MONOCYTES 7.1 %; MPV 9.2 fl. (7.2-11.1); NUCLEATED RBCS 0 /100WBC; PLATELET COUNT* 61 thou/uL (150-400); POLYS 83.7 %
[2020-12-25 09:58] LABS: WBC 1.1 thou/uL (4.0-11.0)
[2020-12-25 10:22] LABS: CALCIUM 7.3 mg/dL (8.5-10.1); CREATININE 0.8 mg/dL (0.6-1.3)
[2020-12-25 10:25] LABS: POTASSIUM 2.8 mmol/L (3.5-5.1)
--- NOTE | 2020-12-25 17:08 | NUR ---
pt indicated she lives at home and her son is living with her. pt stated she uses [facility] srvc. c/g assist pt with adls. pt uses cpap and home o2 at 4l noc. pt not sure of providers. POC: ID CONSULT, AND WOUND CONSULT. HH VS ARU. CM TO CONT TO FOLLOW.
--- NOTE | 2020-12-25 17:10 | NUR ---
PT INDICATED SHE LIVES ALONE. PT HAS NO STAIRS TO NAVIGATE TO ENTER HOME. PT HAS TWO SUPPORTIVE SONS WHO SHE STATED ARE INVOLVED IN CARE. [facility] PT DENIES HX WITH HH OR SNF. ID AND ONGOLOGY CONSULTED. CM TO CONT TO FOLLOW.
[2020-12-26 04:38] LABS: HEMATOCRIT 30.3 % (37.0-47.0); HEMOGLOBIN 10.4 gm/dL (12.0-15.0); MCH 28.5 pg (26.0-34.0); MCHC 34.5 g/dL (28.0-37.0); MCV 82.5 fL (80.0-100.0); MPV 9.2 fl. (7.2-11.1); RBC 3.67 mil/uL (4.20-5.00); RDW-CV 15.4 % (10.5-14.5)
[2020-12-26 04:49] LABS: WBC 1.2 thou/uL (4.0-11.0)
[2020-12-26 05:15] LABS: CALCIUM 7.6 mg/dL (8.5-10.1); CREATININE 0.7 mg/dL (0.6-1.3)
[2020-12-26 05:19] VITALS: BP 108/36
--- NOTE | 2020-12-26 07:20 | NUR ---
CHANGE OF SHIFT BEDSIDE REPORT GIVEN PATIENT SEEN AT BEDSIDE, IN BED RESTING ASSUMED PATIENT CARE
[2020-12-26 08:00] VITALS: BP 95/50
[2020-12-26 12:01] VITALS: BP 106/52
--- NOTE | 2020-12-26 15:19 | NUR ---
PLAN OF CARE: PHYSICIAN INFORMS OF PLAN FOR THE PT TO REMAIN INPT AT THIS TIME. PT ON IV ABT'S. I.D. AND ONCOLOGY CONSULTED. PT MAY NEED SNF AT D/C PENDING PT/OT EVALS AND PT'S MOBILITY PRIOR TO D/C. CM WILL REMAIN AVAILABLE TO ASSIST AND FOLLOW NEEDED.
[2020-12-26 16:46] VITALS: BP 100/60
[2020-12-27] VITALS (7 sets, daily range): BP systolic 96–143; BP diastolic 42–62
[2020-12-27 05:50] LABS: ABSOLUTE LYMPHOCYTES 0.9 thou/uL (0.8-5.3); ABSOLUTE MONOCYTES 0.2 thou/uL (0.0-1.2); ABSOLUTE NEUTROPHILS 1.3 thou/uL (1.6-8.1); BASOPHILS 0.5 %; EOSINOPHILS 0.5 %; HEMATOCRIT 30.5 % (37.0-47.0); HEMOGLOBIN 10.4 gm/dL (12.0-15.0); LYMPHOCYTES 36.2 %; MCH 28.1 pg (26.0-34.0); MCHC 34.1 g/dL (28.0-37.0); MCV 82.3 fL (80.0-100.0); MONOCYTES 9.3 %; MPV 10.5 fl. (7.2-11.1); NUCLEATED RBCS 0 /100WBC; PLATELET COUNT* 67 thou/uL (150-400); POLYS 53.5 %; RDW-CV 15.5 % (10.5-14.5); WBC 2.5 thou/uL (4.0-11.0)
[2020-12-27 06:04] LABS: ALBUMIN 2.1 g/dL (3.4-5.0); CALCIUM 7.8 mg/dL (8.5-10.1); CREATININE 0.7 mg/dL (0.6-1.3); POTASSIUM 3.8 mmol/L (3.5-5.1); TOTAL BILIRUBIN 0.5 mg/dL (<0.1-1.0)
--- NOTE | 2020-12-27 12:13 | NUR ---
Nutrition: Pt admitted with sepsis, neutropenic fever. Regular diet with neutropenic precautions. Pancytopenia. Labs: albumin 2.1, WBC 2.5. H/o lung cancer with chemo/radiation, HTN, NH, cardiac stent, smoker, COPD. Physician indicated moderate PCM - defer. Pt sitting up in bed during visit. She stated she feels better and is eating well. No nutrition quesitons at this time. Wt at usual 157-160#. Consider mild risk. GOALS: continue good meal intake.
--- NOTE | 2020-12-27 13:45 | NUR ---
PLAN OF CARE: PHYSICIAN INFORMS OF PLAN FOR PT TO POSSIBLY D/C OVER THE WEEKEND HH VS SNF. PT EVAL COMPLETED AND RECOMMENDING THAT PT RETURN HOME WITH HH AT D/C. PT DECLINED HH AT THIS TIME. HOWEVER IF PT'S DECIDES THAT SHE WOULD LIKE HH AT D/C CALL AND FAX PATIENT'S FACESHEET, H&P, AND D/C HH ORDERS TO [facility]. CM WILL REMAIN AVAILABLE TO ASSIST AND FOLLOW NEEDED. [facility] PHONE: [phone] FAX: [phone]
--- NOTE | 2020-12-27 16:01 | NUR ---
THIS LOGISTICS CENTER MANAGER IS IN AGREEMENT WITH DOCUMENTED EVALUATION BY BAILEY ARANA FOR THIS DAY. NANCY FORRESTERT
[2020-12-28 04:00] VITALS: BP 119/51
--- NOTE | 2020-12-28 07:00 | NUR ---
ASSUMED CARE OF PT AFTER REPORT AT 1930. PT A&OX4. VSS. PHYSICAL ASSESSMENT COMPLETED AND CHARTED. PT ON RA/1L NC AT HS. PT TRACING SR/SB ON TELE. PT UPADLIB TO RESTROOM. PT DENIES ANY PAIN. CALL LIGHT WITHIN REACH.
[2020-12-28 08:00] VITALS: BP 103/39
[2020-12-28 10:04] LABS: HEMATOCRIT 32.1 % (37.0-47.0); MCH 28.3 pg (26.0-34.0); MCHC 34.2 g/dL (28.0-37.0); MCV 82.9 fL (80.0-100.0); MPV 10.2 fl. (7.2-11.1); NUCLEATED RBCS 0 /100WBC; PLATELET COUNT* 90 thou/uL (150-400); RBC 3.87 mil/uL (4.20-5.00); WBC 4.5 thou/uL (4.0-11.0)
[2020-12-28 10:27] LABS: ALBUMIN 2.1 g/dL (3.4-5.0); CREATININE 0.7 mg/dL (0.6-1.3); POTASSIUM 3.7 mmol/L (3.5-5.1); TOTAL BILIRUBIN 0.4 mg/dL (<0.1-1.0); TOTAL PROTEIN 5.3 g/dL (6.4-8.2)
[2020-12-28 11:13] LABS: ABSOLUTE LYMPHOCYTES 2.6 thou/uL (0.8-5.3); ABSOLUTE MONOCYTES 0.2 thou/uL (0.0-1.2); ABSOLUTE NEUTROPHILS 1.8 thou/uL (1.6-8.1); PLATELET ESTIMATE ADEQUATE
[2020-12-28] MEDS ORDERED: DOXYCYCLINE 10100 MG PO (12:40)
[2020-12-28 13:30] VITALS: BP 149/64
[2020-12-28 14:06] VITALS: BP 149/64
[2020-12-28 14:28] VITALS: BP 149/64
[2020-12-28 17:06] LABS: ANTI-DNA SCREEN <1 IU/mL (0-9); ANTI-RNP <0.2 AI (0.0-0.9); ANTI-SSA 6.2 AI (0.0-0.9); ANTIJO-I AB <0.2 AI (0.0-0.9)
== END 2020-12-28 14:50 | disposition home health service (06) | DRG 871 ==
LOC: M.ERS 10:38 → M.TBA-ER 12:31 → M.2W 12:31
PROVIDERS: Family Medicine; Internal Medicine; Internal Medicine Hematology & Oncology; ADMIT Internal Medicine; ATTEND Internal Medicine
DX: A41.9 Sepsis, unspecified organism (principal); D61.810 Antineoplastic chemotherapy induced pancytopenia; E44.0 Moderate protein-calorie malnutrition; J96.11 Chronic respiratory failure with hypoxia; I10 Essential (primary) hypertension; E78.5 Hyperlipidemia, unspecified; E87.6 Hypokalemia; J43.9 Emphysema, unspecified; I25.10 Atherosclerotic heart disease of native coronary artery without angina pectoris; Z20.822 Contact with and (suspected) exposure to COVID-19; Z87.891 Personal history of nicotine dependence; Z95.5 Presence of coronary angioplasty implant and graft; Z88.0 Allergy status to penicillin; Z88.2 Allergy status to sulfonamides; Z88.8 Allergy status to other drugs, medicaments and biological substances; Z86.73 Personal history of transient ischemic attack (TIA), and cerebral infarction without residual deficits; Z79.01 Long term (current) use of anticoagulants; Z79.899 Other long term (current) drug therapy; I25.2 Old myocardial infarction; Z85.118 Personal history of other malignant neoplasm of bronchus and lung; Z92.21 Personal history of antineoplastic chemotherapy; Z92.3 Personal history of irradiation; Z68.26 Body mass index [BMI] 26.0-26.9, adult

== ENCOUNTER → 2021-01-01 | Outpatient (CLI) | payer OTHER ==
[~2021-01-01] MED LIST changes: +NITROSTAT0.4 M1 SUBLING
--- NOTE | 2021-01-01 15:54 | 2DMMODE ---
[place] [address] 2 D/M-MODE ECHOCARDIOGRAM Name: ALETJ LEE Room: [facility]#: [id number] Admission: 01/01/21 Attend Phys: Eliazar Romero, Discharge: Date of : 45 Date of Service: 01/01/21 1553 Report #: [id number] THIS REPORT FOR: cc: KATYA BANGURA MD, HEATHER L. MD Blick, David R. MD [facility] ~ APPROVED REPORT Study performed: 01/01/2021 14:35:12 EXAM: Comprehensive 2D, Doppler, and color-flow Echocardiogram Patient Location: Out-Patient BSA: 1.79 HR: 58 bpm BP: 130/71 mmHg Other Information Study Quality: Good Indications Congestive Heart Failure Hypertension/HDD 2D Dimensions IVSd: 12.47 (7-11mm) LVOT Diam: 19.97 (18-24mm) LVDd: 44.67 mm PWd: 11.58 (7-11mm) Ascending Ao: 28.42 (22-36mm) LVDs: 23.86 (25-40mm) Aortic Root: 28.06 mm Volumes Left Atrial Volume (Systole) LA ESV Index: 17.90 mL/m2 Aortic Valve AoV Peak Nicho.: 2.07 m/s AO Peak Gr.: 17.07 mmHg LVOT Max P.47 mmHg AO Mean Gr.: 8.84 mmHg LVOT Mean P.41 mmHg LVOT Max V: 0.93 m/s AO V2 VTI: 45.56 cm LVOT Mean V: 0.53 m/s PRASANTH (VTI): 1.67 cm2 LVOT V1 VTI: 24.25 [place] [address] 2 D/M-MODE ECHOCARDIOGRAM Name: TJ AGUILERA [id number] Admission: 01/01/21 Attend Phys: Eliazar Romero, Discharge: Date of : 45 Date of Service: 01/01/21 1553 Report #: [id number] E/A Ratio: 1.02 MV Decel. Time: 174.04 ms MV E Max Nicho.: 0.95 m/s MV PHT: 50.47 ms MVA (PHT): 4.36 cm2 TDI E/Lateral E': 8.64 E/Medial E': 8.64 Medial E' Nicho.: 0.11 m/s Lateral E' Nicho.: 0.11 m/s Pulmonary Valve PV Peak Nicho.: 0.97 m/s PV Peak Gr.: 3.80 mmHg Tricuspid Valve RAP Estimate: 5.00 mmHg TR Peak Gr.: 42.01 mmHg RVSP: 47.01 mmHg PA Pressure: 47.01 mmHg Left Ventricle The left ventricle is normal size. There is normal LV segmental wall motion. Mild concentric left ventricular hypertrophy. Left ventricular systolic function is normal. The left ventricular ejection fraction is within the normal range. LVEF is 55-60%. Grade I - abnormal relaxation pattern. Right Ventricle The right ventricle is normal size. The right ventricular systolic function is normal. Atria The left atrium size is normal. The right atrium size is normal. Aortic Valve Aortic valve is calcified. No aortic regurgitation is present. There is mild aortic valvular stenosis. Mitral Valve Mild mitral annular calcification. Mild mitral regurgitation. No evidence of mitral valve stenosis. Tricuspid Valve The tricuspid valve is normal in structure. Mild tricuspid regurgitation. estimated pa pressure 45 [place] [address] 2 D/M-MODE ECHOCARDIOGRAM Name: ALETJ LEE Room: [facility]#: [id number] Admission: 01/01/21 Attend Phys: Eliazar Romero, Discharge: Date of : 45 Date of Service: 01/01/21 1553 Report #: [id number] Pulmonic Valve The pulmonary valve is normal in structure. Mild pulmonic regurgitation. Great Vessels The aortic root is normal in size. IVC is normal in size and collapses >50% with inspiration. Pericardium There is no pericardial effusion. <Conclusion> Mild concentric left ventricular hypertrophy. LVEF is 55-60%. There is mild aortic valvular stenosis. Mild tricuspid regurgitation. estimated pa pressure 45 mm Hg <ELECTRONICALLY SIGNED> By: Sam Blanco MD, [facility] 01/01/21 1553 1553 1553 Sam Blanco MD, FACC /INF
== END ==
LOC: M.CRD 14:39
PROVIDERS: ATTEND Internal Medicine Hematology & Oncology
DX: I08.8 Other rheumatic multiple valve diseases (principal); I15.9 Secondary hypertension, unspecified; R55 Syncope and collapse

== ENCOUNTER 2021-01-17 10:01 | Emergency (ER) | payer OTHER ==
[~2021-01-17] VITALS: Ht 165.1 cm; Wt 70.8 kg
--- NOTE | ~2021-01-17 | CON ---
[address] [address] CONSULTATION Name: TJ AGUILERA Room: [facility] Ash#: [id number] Admission: 01/17/21 Attend Phys: Discharge: 01/17/21 Date of : 45 Report #: [id number] THIS REPORT FOR: cc: DEISY STOLL MD, Sam Harvey MD, MD [facility] ~ cc: Deisy Stoll DATE OF CONSULTATION: 01/17/2021 CARDIOLOGY CONSULTATION HISTORY OF PRESENT ILLNESS: The patient is a 75-year-old single white female who I was asked to see in the Emergency Room today after she complained of palpitations. The patient had a stent placed in the right coronary artery in 2016. She has done well since that time. She had a nuclear stress test in 12/2019 at [facility] that showed no evidence of ischemia with an ejection fraction of 70%. Last year, she was noted to have a spot on her lung. She was sent to and biopsy showed evidence of adenocarcinoma of the lung. She underwent chemotherapy and radiation therapy in April and May of last year. She had repeat radiation therapy in November of this year. She was actually admitted here to [facility] at the end of November. She was felt to have sepsis. She was noted to have pancytopenia. She is felt to have possible tick-borne illness. She was noted to be hypotensive and was taken off of clonidine, which she previously has been on for high blood pressure. She was discharged. Since her discharge, she has not felt very well. She felt somewhat lightheaded. Her blood pressure has been low. Recently she noticed irregular heartbeat. She noticed some tightness in her chest. It was not related to exertion, meals, or lifting. There is no radiation of the pain. She denied any fever. She has been coughing. She does get short of breath, but no edema. PAST MEDICAL HISTORY: Significant for no other surgical procedures. She has a history of hypertension, hyperlipidemia, COPD. Recently, she was switched from hydrochlorothiazide to Lasix for the swelling. MEDICATIONS: Include an inhaler. She has oxygen used as needed. She is on metoprolol, Plavix. ALLERGIES: SHE HAS AN ALLERGY TO PENICILLIN, SULFA DRUGS. FAMILY HISTORY: Negative for heart disease. SOCIAL HISTORY: She is , lives in [place], [place] by herself. 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 Continues smoking less than 1/2 pack of cigarettes a day[place] [address] CONSULTATION Name: TJ AGUILERA [id number] Admission: 01/17/21 Attend Phys: Discharge: 01/17/21 Date of : 45 Report #: [id number] REVIEW OF SYSTEMS: She has had no history of stroke. She has COPD. No history of liver disease, kidney disease, chronic skin condition, psychiatric illness. PHYSICAL EXAMINATION: GENERAL: Revealed an elderly female who appears in no acute distress. VITAL SIGNS: She had a blood pressure of 120/60, pulse is 80, she is afebrile. HEENT: She was anicteric. Conjunctivae pink. Mucosa moist. NECK: Neck veins do not appear distended. She had a right carotid bruit heard. CHEST: Revealed decreased breath sounds throughout both lung barrera. No wheezes. CARDIAC: Regular rate and rhythm. No murmur. ABDOMEN: Soft. EXTREMITIES: Had no pitting edema. SKIN: Cool and dry. NEUROLOGIC: Nonfocal. IMAGING: ECG shows a sinus rhythm, no significant ST-T wave changes. Her workup, she actually had an echocardiogram performed on January 01 when she was here with sepsis that showed ejection fraction 60%. There was evidence of mild aortic stenosis, mild pulmonary hypertension. The peak gradient across the aortic valve was noted to be 18 mmHg. Her chest x-ray in the Emergency Room today showed some atelectasis, small effusion, no pulmonary edema. She actually had a CT scan of the head performed which showed no acute abnormality. LABORATORY DATA: Her lab work; sodium 138, creatinine 0.8. Her troponin is 0.06. Her white blood cell count 4.5, hematocrit 33, it was 32 a month ago. Her COVID antigen test last month was negative. IMPRESSION AND RECOMMENDATIONS: 1. Palpitations. I would consider discharging the patient with event recorder. I would continue beta israel. 2. Previous coronary stent. Symptoms atypical for angina. No acute coronary syndrome. I would continue Plavix. 3. Hypertension. The patient is on beta israel. No longer on clonidine. 4. Edema. Suspect venous insufficiency. The patient on Lasix. 5. Chronic obstructive pulmonary disease. The patient on oxygen and nebulizer. 6. Carotid bruit. Previous Doppler study last March showed less than 50% stenosis. 7. History of lung cancer. Recent radiation therapy. [address] [place] [address] CONSULTATION Name: TJ AGUILERA Room: [facility] ELENI Aleman#: [id number] Admission: 01/17/21 Attend Phys: Discharge: 01/17/21 Date of : 45 Report #: [id number] 8. Persistent tobacco abuse. 9. Anemia. No recent bleeding. By: [id number] Blanco MD, FACC /nt
[2021-01-17] MEDS ORDERED: IRON (10:19)
[2021-01-17 11:16] LABS: ABSOLUTE EOSINOPHILS 0.1 thou/uL (0.0-0.7); ABSOLUTE LYMPHOCYTES 1.6 thou/uL (0.8-5.3); ABSOLUTE MONOCYTES 0.4 thou/uL (0.0-1.2); ABSOLUTE NEUTROPHILS 2.5 thou/uL (1.6-8.1); BASOPHILS 0.7 %; EOSINOPHILS 1.1 %; HEMATOCRIT 33.5 % (37.0-47.0); LYMPHOCYTES 34.5 %; MCH 27.7 pg (26.0-34.0); MCHC 32.7 g/dL (28.0-37.0); MCV 84.9 fL (80.0-100.0); MONOCYTES 8.1 %; MPV 8.1 fl. (7.2-11.1); NUCLEATED RBCS 0 /100WBC; PLATELET COUNT* 191 thou/uL (150-400); POLYS 55.6 %; RBC 3.95 mil/uL (4.20-5.00); RDW-CV 17.5 % (10.5-14.5); WBC 4.5 thou/uL (4.0-11.0)
[2021-01-17 11:25] LABS: CALCIUM 8.3 mg/dL (8.5-10.1); CREATININE 0.8 mg/dL (0.6-1.3); POTASSIUM 3.7 mmol/L (3.5-5.1)
[2021-01-17 11:28] LABS: APTT 24.2 Seconds (25.0-31.3)
[2021-01-17 11:29] LABS: ALBUMIN 2.9 g/dL (3.4-5.0); MAGNESIUM 2.2 mg/dL (1.8-2.4); TOTAL BILIRUBIN 0.5 mg/dL (<0.1-1.0); TOTAL PROTEIN 6.4 g/dL (6.4-8.2)
[2021-01-17 14:08] VITALS: BP 142/61
--- NOTE | 2021-01-17 16:18 | EKG ---
[place] [address] ELECTROCARDIOGRAM REPORT Name: TJ AGUILERA Room: [facility]#: [id number] Admission: 01/17/21 Attend Phys: Discharge: 01/17/21 Date of : 45 Date of Service: 01/17/21 1011 Report #: [id number] THIS REPORT FOR: //name// [facility] ED Test Date: 2021-01-17 Test Time: 10:11:22 Pat Name: TJ AGUILERA Department: Room: Gender: Account Retention Representative: : 1945 Requested By: Brayan Neal Order Number: [id number] MD: Sam Blanco Measurements Intervals Fletcher Rate: 70 P: 45 DE: 150 QRS: 36 QRSD: 80 T: 22 QT: 362 QTc: 391 Interpretive Statements Sinus rhythm Compared to ECG 12/24/2020 11:39:29 No significant changes Electronically Signed On 01-17-2021 16:18:37 CDT by Sam Blanco [email or web address] <ELECTRONICALLY SIGNED> By: Sam Blanco MD, [facility] 01/17/21 1618 1011 1011 Sam Blanco MD, [facility] /EPI
== END 2021-01-17 14:08 | disposition home or self-care (01) ==
LOC: M.ERS 10:01
PROVIDERS: Emergency Medicine Emergency Medical Services
DX: R00.2 Palpitations (principal); I10 Essential (primary) hypertension; J44.9 Chronic obstructive pulmonary disease, unspecified; F17.210 Nicotine dependence, cigarettes, uncomplicated; Z88.0 Allergy status to penicillin; Z88.2 Allergy status to sulfonamides; Z88.8 Allergy status to other drugs, medicaments and biological substances; Z86.73 Personal history of transient ischemic attack (TIA), and cerebral infarction without residual deficits; Z95.5 Presence of coronary angioplasty implant and graft

== ENCOUNTER 2021-02-10 09:50 | Inpatient (IN) | payer OTHER ==
[~2021-02-10] VITALS: Ht 152.4 cm; Wt 75.4 kg
[~2021-02-10 09:50] MED LIST changes: +IRON
[2021-02-10 09:58] VITALS: BP 99/43
[2021-02-10 10:14] LABS: HEMATOCRIT 31.5 % (37.0-47.0); HEMOGLOBIN 10.1 gm/dL (12.0-15.0); MCH 27.2 pg (26.0-34.0); MCHC 32.1 g/dL (28.0-37.0); MCV 84.7 fL (80.0-100.0); MPV 8.2 fl. (7.2-11.1); NUCLEATED RBCS 0 /100WBC; PLATELET COUNT* 147 thou/uL (150-400); RBC 3.71 mil/uL (4.20-5.00); RDW-CV 17.5 % (10.5-14.5)
[2021-02-10 10:16] LABS: WBC 1.3 thou/uL (4.0-11.0)
[2021-02-10 10:24] LABS: CALCIUM 7.5 mg/dL (8.5-10.1); CREATININE 0.9 mg/dL (0.6-1.3); POTASSIUM 4.1 mmol/L (3.5-5.1)
[2021-02-10 10:35] LABS: ALBUMIN 2.4 g/dL (3.4-5.0); TOTAL BILIRUBIN 0.4 mg/dL (<0.1-1.0); TOTAL PROTEIN 5.7 g/dL (6.4-8.2)
--- NOTE | 2021-02-10 10:58 | EKG ---
[place] [address] ELECTROCARDIOGRAM REPORT Name: TJ AGUILERA Room: 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
[2021-02-10 11:05] LABS: ABSOLUTE LYMPHOCYTES 0.2 thou/uL (0.8-5.3); PLATELET ESTIMATE DECREASED
[2021-02-10 11:06] LABS: HYPOCHROMASIA 2+; MICROCYTES Occasional
[2021-02-10 11:07] LABS: ANISOCYTOSIS Occasional
[2021-02-10 19:05] VITALS: BP 124/56
[2021-02-10 23:00] VITALS: BP 116/54
[2021-02-11] VITALS (9 sets, daily range): BP systolic 100–135; BP diastolic 48–63
[2021-02-11 04:00] LABS: HEMOGLOBIN 10.4 gm/dL (12.0-15.0)
[2021-02-11 04:02] LABS: HEMATOCRIT 32.6 % (37.0-47.0); MCHC 31.8 g/dL (28.0-37.0); MPV 8.2 fl. (7.2-11.1); NUCLEATED RBCS 0 /100WBC; PLATELET COUNT* 139 thou/uL (150-400); RBC 3.83 mil/uL (4.20-5.00); RDW-CV 17.2 % (10.5-14.5)
[2021-02-11 04:03] LABS: CALCIUM 7.4 mg/dL (8.5-10.1); CREATININE 0.7 mg/dL (0.6-1.3); POTASSIUM 4.3 mmol/L (3.5-5.1)
[2021-02-11 04:06] LABS: WBC 0.6 thou/uL (4.0-11.0)
[2021-02-11 05:50] LABS: ABSOLUTE LYMPHOCYTES 0.2 thou/uL (0.8-5.3); ABSOLUTE NEUTROPHILS 0.4 thou/uL (1.6-8.1); ANISOCYTOSIS 1+; HYPOCHROMASIA 1+; MYELOCYTES 2 %; OVALOCYTES 1+; PLATELET ESTIMATE DECREASED; POIKILOCYTOSIS 1+; POLYCHROMASIA Occasional
[2021-02-12 00:21] VITALS: BP 120/63
[2021-02-12 04:30] VITALS: BP 133/60
--- NOTE | 2021-02-12 07:48 | NUR ---
PATIENT HAS RESTED WELL THROUGHOUT MOST OF THE NIGHT. VSS ON 5L 02 VIA NASAL CANNULA. MEDICATIONS GIVEN ORDERED AND CHARTED. IV IN LEFT AC-SL. IV ABT'S GIVEN WITHOUT ANY ADVERSE SIDE EFFECTS NOTED. PATIENT INSTRUCTED TO USE CALL LIGHT WHEN NEEDING ASSISTANCE. HOURLY ROUNDS MADE. WILL CONTINUE WITH PLAN OF CARE AND NURSING TO MONITOR.
[2021-02-12 08:05] VITALS: BP 123/59
[2021-02-12 12:19] VITALS: BP 126/58
--- NOTE | 2021-02-12 12:24 | NUR ---
Pt is A&O. Resides at home alone. Independent. Pt has a cpap and home o2 that she wears at [facility] through [place]. No hx of HH or SNF. Pt continues to smoke. Pt on 5L, pulm following. Covid positive. Anticipate dc in a few days.
[2021-02-12 14:43] LABS: ABSOLUTE LYMPHOCYTES 0.2 thou/uL (0.8-5.3); ABSOLUTE MONOCYTES 0.1 thou/uL (0.0-1.2); ABSOLUTE NEUTROPHILS 2.2 thou/uL (1.6-8.1); BASOPHILS 0.2 %; CALCIUM 7.7 mg/dL (8.5-10.1); CREATININE 0.8 mg/dL (0.6-1.3); HEMATOCRIT 32.2 % (37.0-47.0); HEMOGLOBIN 10.3 gm/dL (12.0-15.0); MCH 27.2 pg (26.0-34.0); MCHC 31.9 g/dL (28.0-37.0); MCV 85.2 fL (80.0-100.0); MONOCYTES 5.8 %; MPV 8.3 fl. (7.2-11.1); NUCLEATED RBCS 0 /100WBC; PLATELET COUNT* 169 thou/uL (150-400); POTASSIUM 4.3 mmol/L (3.5-5.1); RBC 3.78 mil/uL (4.20-5.00); RDW-CV 17.2 % (10.5-14.5)
[2021-02-12 14:46] LABS: WBC 2.5 thou/uL (4.0-11.0)
[2021-02-12 14:48] LABS: ALBUMIN 2.2 g/dL (3.4-5.0); TOTAL BILIRUBIN 0.3 mg/dL (<0.1-1.0); TOTAL PROTEIN 5.5 g/dL (6.4-8.2)
[2021-02-12 16:06] LABS: BF RBC 3806 /mm3; TOTAL CELL COUNT 478 /mm3
[2021-02-12 16:07] LABS: CLARITY HAZY; TOTAL VOLUME 960 ml
[2021-02-12 16:19] VITALS: BP 122/58
[2021-02-12 16:34] LABS: BF LYMPHOCYTES 94 %; BF MONOCYTES 6 %
[2021-02-12 16:35] LABS: SOURCE PLEURAL FLUID
--- NOTE | 2021-02-12 19:05 | NUR ---
PATIENT RESTING IN BED. PATIENT IS UP WITH STANDBY ASSIST. PATIENT DENIES ANY PAIN. PAITENT IS ON 5L/NC. PATIENT HAD BEDSIDE THORACENTESIS WITHOUT INCIDENT. PATIENT DENIES ANY NEEDS AT THIS TIME. CALL LIGHT WITHIN REACH.
[2021-02-12 20:15] VITALS: BP 146/69
--- NOTE | 2021-02-12 22:39 | CON ---
[address] [address] CONSULTATION Name: TJ AGUILERA Room: [address] M.R.#: [id number] Admission: 02/10/21 Attend Phys: Srikanth Galaviz MD Discharge: Date of : 45 Report #: [id number] THIS REPORT FOR: cc: KATYA BANGURA MD, HEATHER L. MD Pervez, Adeel MD ~ DATE OF CONSULTATION: 02/11/2021 REQUESTING PHYSICIAN: Srikanth Galaviz MD INDICATION FOR CONSULTATION: Acute hypoxemic respiratory failure secondary to COVID-19. 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 She also has COPD and is an active smoker. Her FEV1 is decreased to 1.07 liters. At her baseline, she requires 2 liters of oxygen while asleep. Does not require oxygen while awake. I have seen her in the office as well as in this hospital previously. Her most recent admission was last month with pancytopenia during which she was managed by other physicians and did receive vancomycin as well as cefepime. Unfortunately, she is unvaccinated for COVID-19. At this time, the patient has presented with increasing shortness of breath. She has also had a cough with small amount of sputum production. She does not know the color. She reports being febrile and having nausea as well. She did test positive for the COVID-19 antigen. She is currently requiring about 5 liters of oxygen to maintain O2 saturation in the low 90s. She does have D-dimer elevation to 1.18 and there is a large opacity in the right lower lobe, which is new compared with the end of December and therefore is likely due to atelectasis and infiltrate and not primarily due to her malignancy. She has significant leukopenia. REVIEW OF SYSTEMS: The patient's review of systems for 12 points is negative except as mentioned above. PAST MEDICAL HISTORY: Adenocarcinoma of the lung. Most recent radiation therapy was in November. COPD, FEV1 is just above 1 liter. At her baseline, she requires 2 liters of oxygen to maintain O2 saturation while asleep and does not require oxygen while awake. Coronary artery disease status post coronary stents. She is on Plavix long-term. Last available echocardiogram shows a normal left ventricular ejection fraction and pulmonary artery systolic mildly elevated to 45. Hypertension. Hyperlipidemia. Recent admission to this hospital with pancytopenia, kidney stones, oral surgery, full mouth extraction, full dentures, [place] [address] CONSULTATION Name: TJ AGUILERA AYAKA Room: [address] ..#: [id number] Admission: 02/10/21 Attend Phys: Srikanth Galaviz MD Discharge: Date of : 45 Report #: [id number] SOCIAL HISTORY: There is an extensive history of smoking, still smokes. No known history of heavy alcohol use or illegal drug use. CURRENT MEDICATIONS: List in [facility] reviewed. HOME MEDICATIONS: List in [facility] reviewed. FAMILY HISTORY: No pertinent family history. PHYSICAL EXAMINATION: GENERAL: She is alert, awake and oriented, did not appear to be in any distress, but she is saturating 93% on 5 liters oxygen. Note that at baseline, she does not require oxygen while awake. VITAL SIGNS: Blood pressure is on the lower side at 100/52, respiratory rate was around 20, heart rate 65. She is afebrile with a temperature of 36.2. HEENT: Head is normocephalic and atraumatic. NECK: Does not show raised JVP. CHEST: Breath sounds decreased at right lung base. There are significant rales at bilateral lung bases, more on the right lung base. HEART: Regular. There is no murmur. ABDOMEN: Soft and nontender. LOWER EXTREMITIES: Trace edema, no calf tenderness. SKIN: Dry and intact. NEUROLOGIC: Moves all extremities bilaterally equally and spontaneously with no focal deficit identified. LABORATORY DATA: The patient's chest x-ray as well as lab work in [facility] reviewed. ASSESSMENT AND PLAN: 1. Acute hypoxemic respiratory failure secondary to COVID-19. Continue to titrate oxygen. Recommend prone positioning and encourage ambulation to chair. 2. COVID-19. Agree with dexamethasone at 6 mg. For now, did not change the dose. We will consider increasing in case her oxygen needs worsen. Also, agree with remdesivir. Follow liver function tests. I will review with the patient regarding risks versus benefits of administration of convalescent plasma. I in fact, favor giving her convalescent plasma as there is more data for benefit in immunocompromised patients. With a WBC count of 0.6, she appears to be immune compromised. For now, plan to hold off on considering Actemra. 3. Pulmonary infiltrate. There is a large pulmonary infiltrate at right lung base, which is new compared with end of December. This is consistent with mucus plugging as well as a secondary bacterial infection. I would broaden antibiotic coverage by switching her over to Levaquin and vancomycin. For now, I did not start cefepime as she received cefepime recently during the previous [address] [place] [place] [address] CONSULTATION Name: TJ AGUILERA Room: [address] [facility].#: [id number] Admission: 02/10/21 Attend Phys: Srikanth Galaviz MD Discharge: Date of : 45 Report #: [id number] hospitalization; however, if she is to decline, I would recommend adding cefepime. I will go ahead and order a nasal swab for methicillin-resistant Staphylococcus aureus. If it in fact was obtained, I feel that there will be a benefit in documenting as to whether she is colonized with methicillin-resistant Staphylococcus aureus. I also recommend obtaining a sputum culture. Blood cultures were sent yesterday. 4. Chronic obstructive pulmonary disease. She has a low FEV1. I do not, therefore feel that she can use metered dose inhalers adequately. Therefore, I recommend giving her nebulized bronchodilators and therefore, I recommend her transferring her to a negative pressure room. For now, I only ordered Brovana. We will add additional bronchodilators if the patient's respiratory status worsens. 5. Elevated D-dimer. Recommend obtaining a CTA chest as well as venous Dopplers. 6. Deep venous thrombosis prophylaxis. I agree with Lovenox. We will follow her lab work and then decide as to whether we should increase the dose. Also, evaluation for thromboembolism as above. 7. Gastrointestinal prophylaxis, Protonix. 8. Clostridium difficile prophylaxis. I did not order Lactinex due to leukopenia. 9. History of adenocarcinoma of the lung. 10. Unvaccinated for COVID-19. <ELECTRONICALLY SIGNED> By: Rajesh Salamanca MD 02/12/21 2239 1725 2007Abarbara Salamanca MD /nt
[2021-02-13 01:14] VITALS: BP 140/74
[2021-02-13 05:01] VITALS: BP 153/65
[2021-02-13 08:00] VITALS: BP 145/60
[2021-02-13 11:43] LABS: ABSOLUTE LYMPHOCYTES 0.3 thou/uL (0.8-5.3); ABSOLUTE MONOCYTES 0.2 thou/uL (0.0-1.2); ABSOLUTE NEUTROPHILS 2.2 thou/uL (1.6-8.1); BASOPHILS 0.1 %; HEMATOCRIT 32.1 % (37.0-47.0); HEMOGLOBIN 10.2 gm/dL (12.0-15.0); LYMPHOCYTES 12.1 %; MCH 26.9 pg (26.0-34.0); MCHC 31.9 g/dL (28.0-37.0); MCV 84.3 fL (80.0-100.0); MONOCYTES 8.8 %; NUCLEATED RBCS 0 /100WBC; PLATELET COUNT* 178 thou/uL (150-400); RBC 3.81 mil/uL (4.20-5.00); RDW-CV 17.2 % (10.5-14.5); WBC 2.8 thou/uL (4.0-11.0)
[2021-02-13 11:49] LABS: CALCIUM 7.6 mg/dL (8.5-10.1); CREATININE 0.7 mg/dL (0.6-1.3); POTASSIUM 3.5 mmol/L (3.5-5.1)
[2021-02-13 12:00] VITALS: BP 135/76
--- NOTE | 2021-02-13 14:50 | NUR ---
Anticipate dc in a few days. Pt up to 8L from 5 yesterday.
[2021-02-13 16:00] VITALS: BP 134/60
[2021-02-13 20:16] VITALS: BP 168/76
[2021-02-14] VITALS: BP 125/53
[2021-02-14 04:19] VITALS: BP 163/63
[2021-02-14 05:10] LABS: ABSOLUTE LYMPHOCYTES 0.3 thou/uL (0.8-5.3); ABSOLUTE MONOCYTES 0.2 thou/uL (0.0-1.2); ABSOLUTE NEUTROPHILS 1.7 thou/uL (1.6-8.1); BASOPHILS 0.1 %; HEMATOCRIT 32.9 % (37.0-47.0); HEMOGLOBIN 10.6 gm/dL (12.0-15.0); LYMPHOCYTES 14.3 %; MCH 26.8 pg (26.0-34.0); MCHC 32.1 g/dL (28.0-37.0); MCV 83.6 fL (80.0-100.0); MONOCYTES 10.4 %; MPV 8.1 fl. (7.2-11.1); NUCLEATED RBCS 0 /100WBC; PLATELET COUNT* 185 thou/uL (150-400); POLYS 75.2 %; RBC 3.94 mil/uL (4.20-5.00); RDW-CV 17.2 % (10.5-14.5); WBC 2.2 thou/uL (4.0-11.0)
[2021-02-14 05:32] LABS: ALBUMIN 2.3 g/dL (3.4-5.0); CALCIUM 7.8 mg/dL (8.5-10.1); CREATININE 0.6 mg/dL (0.6-1.3); MAGNESIUM 1.9 mg/dL (1.8-2.4); TOTAL BILIRUBIN 0.5 mg/dL (<0.1-1.0); TOTAL PROTEIN 5.4 g/dL (6.4-8.2)
[2021-02-14 08:00] VITALS: BP 162/62
[2021-02-14 12:00] VITALS: BP 135/75
--- NOTE | 2021-02-14 13:36 | NUR ---
Anticipate dc in a few days. Remains on 8L
[2021-02-14 16:00] VITALS: BP 132/56
[2021-02-14 20:59] VITALS: BP 147/65
[2021-02-15 00:09] VITALS: BP 143/59
[2021-02-15 04:38] VITALS: BP 138/65
--- NOTE | 2021-02-15 05:22 | NUR ---
PT IS ABLE TO COMMUNICATE HER NEEDS TO STAFF EFFECTIVELY.
--- NOTE | 2021-02-15 05:58 | NUR ---
PT IS ABLE TO COMMUNICATE HER NEEDS TO STAFF EFFECTIVELY. SHE HAS DENIED THE NEED FOR PAIN MEDICATION UP TO THIS TIME. SHE HAS HAD A POOR APPETITE SINCE COMING HERE, BUT SAYS IT IS IMPROVING.
[2021-02-15 08:00] VITALS: BP 123/58; BP 154/70
[2021-02-15 08:30] LABS: ABSOLUTE LYMPHOCYTES 0.7 thou/uL (0.8-5.3); ABSOLUTE MONOCYTES 0.5 thou/uL (0.0-1.2); ABSOLUTE NEUTROPHILS 3.6 thou/uL (1.6-8.1); HEMATOCRIT 36.1 % (37.0-47.0); HEMOGLOBIN 11.9 gm/dL (12.0-15.0); LYMPHOCYTES 13.9 %; MCH 27.2 pg (26.0-34.0); MCV 82.5 fL (80.0-100.0); MONOCYTES 10.5 %; MPV 7.9 fl. (7.2-11.1); NUCLEATED RBCS 0 /100WBC; PLATELET COUNT* 254 thou/uL (150-400); POLYS 75.6 %; RBC 4.37 mil/uL (4.20-5.00); WBC 4.8 thou/uL (4.0-11.0)
[2021-02-15 08:38] LABS: ALBUMIN 2.6 g/dL (3.4-5.0); CALCIUM 8.3 mg/dL (8.5-10.1); CREATININE 0.7 mg/dL (0.6-1.3); MAGNESIUM 1.8 mg/dL (1.8-2.4); PHOSPHORUS* 2.7 mg/dL (2.5-4.9); POTASSIUM 3.5 mmol/L (3.5-5.1); TOTAL BILIRUBIN 0.9 mg/dL (<0.1-1.0); TOTAL PROTEIN 5.9 g/dL (6.4-8.2)
[2021-02-15 12:09] VITALS: BP 104/51
[2021-02-15 16:34] VITALS: BP 120/52
[2021-02-15 19:07] LABS: BODY FLUID PROTEIN 2.8 g/dL (())
[2021-02-15 20:44] VITALS: BP 124/51
[2021-02-16] VITALS (7 sets, daily range): BP systolic 99–158; BP diastolic 35–88
--- NOTE | 2021-02-16 07:32 | NUR ---
ATTEMPTED TO REACH SON MIRIAM AND ANDREW. MIRIAM'S PHONE WENT STRAIGHT TO A RECORDED MESSAGE BUT NO VM. ANDREW'S PHONE RANG BUT HAD A VM THAT WASN'T SET UP.
--- NOTE | 2021-02-16 08:38 | NUR ---
PT IS ABLE TO COMMUNICATE HER NEEDS TO STAFF EFFECTIVELY. CURRENT PAIN MEDICATION REGIMEN HAS BEEN ADEQUATE FOR CONTROLLING HER PAIN UP TO THIS TIME. PT'S O2 DEMANDS HAVE BEEN INCREASING RECENTLY; RT FOLLOWING.
[2021-02-16 10:13] LABS: CALCIUM 7.7 mg/dL (8.5-10.1); CREATININE 0.6 mg/dL (0.6-1.3); POTASSIUM 3.7 mmol/L (3.5-5.1)
--- NOTE | 2021-02-16 20:21 | NUR ---
PT. SUFFERED A FALL DURING ASSISTANT HAIRSTYLIST, DISCUSSED PALN OF CARE WITH DR. BRENNER. PT. MAINTAINED POOR APPETITE THROUGHOUT SHIFT, ENCOURAGED TO EAT. SPOKE TO DR. CUMMINS FOR SURGERY CONSULT, STATED THAT WILL CONSIDER R FEMORAL SURGERY ONCE PT. IS MEDICALLY STABLE AND WILL REVIEW STATUS TOMORROW OR DAY AFTER. PT. BLADDER SCANNED CLOSE TO SHIFT CHANGE, VOIDED SINCE. ASSESED ABDOMEN FOR RETENTION, PT. DENIES BLADDER DISCOMFORT. REPORTED THIS TO INCOMING NURSE. PT. OTHERWISE AOX4, DENIES PAIN. CALL LIGHT AND PERSONAL BELONGINGS PLACED WITHIN REACH.
[2021-02-17] VITALS: BP 140/53
[2021-02-17 04:00] VITALS: BP 127/49
[2021-02-17 08:00] VITALS: BP 108/40
--- NOTE | 2021-02-17 08:50 | NUR ---
PATIENT HAS SLEPT OFF AND ON DURING THE NIGHT. VSS ON 55L HHHF WITH 100% FI02 D/T DECREASED OXYGEN LEVELS IN THE EARLY PART OF THE NIGHT. MEDICATIONS GIVEN ORDERED AND CHARTED. PUREWICK IN PLACE TO SUCTION. IV IN RIGHT AC-SL. IV ABT GIVEN WITHOUT ANY ADVERSE SIDE EFFECTS NOTED. FALL PRECAUTIONS IN PLACE AND HOURLY ROUNDS MADE. WILL CONTINUE WITH PLAN OF CARE AND NURSING TO MONITOR.
[2021-02-17 11:31] VITALS: BP 99/36
--- NOTE | 2021-02-17 12:30 | NUR ---
Nutrition: Pt admitted to COVID unit. Assessed for LOS. Spoke with RN. Pt didn't eat much for BKFSt, but RN is hopeful that pt will eat better at lunch since her pain is being controlled. RN will record meal intake % in [place]. RD will follow po intake. H/o COPD, lung cancer, leukopenia. 2gm Na diet. Wt: 153#. Alb 2.6, prealb 12.5. Consider mild nutrition risk at this time. Will follow for po intake, wt, labs 02/22/21.
--- NOTE | 2021-02-17 14:17 | NUR ---
Pt on 55L NRB, continue to wean. Pt had a fall, surgery following for possible surgery.
[2021-02-17 16:04] VITALS: BP 105/46
--- NOTE | 2021-02-17 18:29 | NUR ---
RECEIVED REPORT AROUND 0715. ASSUMED CARE. VS AND ASSESSMENT CHARTED. IV INTACT. HEART MONITOR ATTACHED AT SR. PT BEDREST. PAIN THROUGHOUT SHIFT. MEDS GIVEN PER AUG. HOURLY ROUNDING PERFORMED. ISOLATION INTACT. SON UPDATED ON PT. CALL LIGHT WITH IN REACH. WILL CONTINUE TO MONITOR.
[2021-02-17 18:32] LABS: HEMATOCRIT 31.9 % (37.0-47.0); HEMOGLOBIN 10.3 gm/dL (12.0-15.0); MCH 26.8 pg (26.0-34.0); MCHC 32.2 g/dL (28.0-37.0); MCV 83.2 fL (80.0-100.0); MPV 8.2 fl. (7.2-11.1); NUCLEATED RBCS 0 /100WBC; PLATELET COUNT* 196 thou/uL (150-400); RBC 3.83 mil/uL (4.20-5.00); RDW-CV 17.1 % (10.5-14.5); WBC 7.9 thou/uL (4.0-11.0)
[2021-02-17 18:47] LABS: APTT 28.2 Seconds (25.0-31.3); INR 1.1; PROTIME 11.9 Seconds (9.20-11.50)
[2021-02-17 18:51] LABS: ALBUMIN 2.1 g/dL (3.4-5.0); CALCIUM 7.8 mg/dL (8.5-10.1); CREATININE 0.8 mg/dL (0.6-1.3); POTASSIUM 3.9 mmol/L (3.5-5.1); TOTAL BILIRUBIN 0.8 mg/dL (<0.1-1.0); TOTAL PROTEIN 5.2 g/dL (6.4-8.2)
[2021-02-17 19:02] LABS: ABSOLUTE LYMPHOCYTES 0.2 thou/uL (0.8-5.3); ABSOLUTE MONOCYTES 0.2 thou/uL (0.0-1.2); ABSOLUTE NEUTROPHILS 7.6 thou/uL (1.6-8.1)
[2021-02-17 19:03] LABS: ANISOCYTOSIS Occasional; PLATELET ESTIMATE ADEQUATE
[2021-02-17 20:30] VITALS: BP 109/50
[2021-02-18 00:33] VITALS: BP 145/69
[2021-02-18 04:57] VITALS: BP 138/61
[2021-02-18 06:37] LABS: ABSOLUTE LYMPHOCYTES 0.2 thou/uL (0.8-5.3); ABSOLUTE MONOCYTES 0.2 thou/uL (0.0-1.2); ABSOLUTE NEUTROPHILS 8.1 thou/uL (1.6-8.1); BASOPHILS 0.1 %; HEMOGLOBIN 10.5 gm/dL (12.0-15.0); LYMPHOCYTES 2.2 %; MCH 26.3 pg (26.0-34.0); MCHC 31.7 g/dL (28.0-37.0); MCV 82.9 fL (80.0-100.0); MONOCYTES 2.9 %; MPV 8.6 fl. (7.2-11.1); NUCLEATED RBCS 0 /100WBC; PLATELET COUNT* 215 thou/uL (150-400); POLYS 94.8 %; RBC 3.97 mil/uL (4.20-5.00); RDW-CV 17.2 % (10.5-14.5); WBC 8.6 thou/uL (4.0-11.0)
[2021-02-18 06:45] LABS: CALCIUM 8.1 mg/dL (8.5-10.1); CREATININE 0.7 mg/dL (0.6-1.3); MAGNESIUM 2.1 mg/dL (1.8-2.4); POTASSIUM 3.9 mmol/L (3.5-5.1)
[2021-02-18 08:00] VITALS: BP 137/56
[2021-02-18 12:32] VITALS: BP 134/48
--- NOTE | 2021-02-18 14:08 | PATH ---
[address] [address] PATHOLOGY RPT PROCEDURE Name: TJ AGUILERA Room: [address] IN [facility]#: [id number] Admission: 02/10/21 Date of : 45 Discharge: Report #: [id number] Path Case #: [id number] Note [facility] Accession Number: [id number] TESTS RESULT FLAG UNITS REF RANGE LAB Clinician Provided Cytology Information No. of containers..01 Other (Miscellaneous) Source: RIGHT PLEURAL FLUID DIAGNOSIS: 02 RIGHT PLEURAL FLUID NEGATIVE FOR MALIGNANT CELLS. REACTIVE MESOTHELIAL CELLS, MODERATE, PREDOMINANTLY CHRONIC INFLAMMATORY CELLS AND FEW RBCs ARE PRESENT. Signed out by: 02 Flash Gonzalez MD, Pathologist NPI- [id number] Performed by: Ml Garcia, Manager Motor ([facility]) Gross description: 01 30ML, CLOUDY YELLOW, 1 TP 1CB /LCS 02/14/2021 1534 Local FLAG LEGEND: L-Low Normal,H-High Normal,LL-Alert Low,HH-Alert High <-Panic Low,>-Panic High,A-Abnormal,AA-Critical Abnormal Performed at: [address] [place] [address] Michael Montoya MD, [address] [place] [address] [address] [facility], [place] [address] Flash Gonzalez MD, Specimen Comment: A duplicate report has been generated due to demographic updates. Performed at: [address], [place], [place] [id number] MD Michael Montoya MD Phone: [phone]
--- NOTE | 2021-02-18 14:20 | NUR ---
Anticipate dc in a few more days. Pt on 60L HHF. Pt's o2 needs still to high to proceed with surgery.
[2021-02-18 16:49] VITALS: BP 111/47
--- NOTE | 2021-02-18 18:17 | NUR ---
RECEIVED REPORT AROUND 0715. ASSUMED CARE. VS AND ASSESSMENT CHARTED. IV INTACT. HEART MONITOR ATTACHED AT SR. PER PT IS ALLOWED TO GET UP WITH WALKER WEIGHT BEARING ON RIGHT HIP AT 25%. ORDERED PHYSICAL THERAPY TO SEE PT. MEDS GIVEN PER AUG. HOURLY ROUNDING PERFORMED. PAIN THROUGHOUT SHIFT. ISOLATION INTACT. PURIWCK INTACT. CALL LIGHT WITH IN REACH. WILL CONTINUE TO MONITOR.
[2021-02-18 20:20] VITALS: BP 140/51
[2021-02-19] VITALS (7 sets, daily range): BP systolic 120–143; BP diastolic 53–76
[2021-02-19 08:49] LABS: ABSOLUTE LYMPHOCYTES 0.3 thou/uL (0.8-5.3); ABSOLUTE MONOCYTES 0.5 thou/uL (0.0-1.2); ABSOLUTE NEUTROPHILS 9.7 thou/uL (1.6-8.1); BASOPHILS 0.2 %; HEMATOCRIT 31.8 % (37.0-47.0); HEMOGLOBIN 10.5 gm/dL (12.0-15.0); LYMPHOCYTES 2.7 %; MCH 27.1 pg (26.0-34.0); MCHC 33.1 g/dL (28.0-37.0); MCV 81.9 fL (80.0-100.0); MONOCYTES 4.9 %; NUCLEATED RBCS 0 /100WBC; PLATELET COUNT* 217 thou/uL (150-400); POLYS 92.2 %; RBC 3.88 mil/uL (4.20-5.00); WBC 10.5 thou/uL (4.0-11.0)
[2021-02-19 09:10] LABS: ALKALINE PHOSPHATASE 75 U/L (46-116); ANION GAP < 0 mmol/L (7-16); BUN 32 mg/dL (7-18); CALCIUM 8.1 mg/dL (8.5-10.1); CHLORIDE 104 mmol/L (98-107); CO2 37 mmol/L (21-32); CREATININE 0.7 mg/dL (0.6-1.3); GLUCOSE 122 mg/dL (70-99); MAGNESIUM 2.2 mg/dL (1.8-2.4); POTASSIUM 3.7 mmol/L (3.5-5.1); SGOT 12 U/L (15-37); SGPT 15 U/L (30-65); SODIUM 140 mmol/L (136-145); TOTAL BILIRUBIN 0.7 mg/dL (<0.1-1.0); TOTAL PROTEIN 5.4 g/dL (6.4-8.2)
[2021-02-19 13:56] LABS: SOURCE THORACENTESIS
--- NOTE | 2021-02-19 15:04 | NUR ---
Pt will remain inpt for a few more days. Currently on 60L, continue to wean
--- NOTE | 2021-02-19 17:41 | NUR ---
RECEIVED REPORT AROUND 0715. ASSUMED CARE. VS AND ASSESSMENT CHARTED. IV INFILTRATED THIS AM. PT HAS RIGHT SIDED PORTACATH. ACCESSED THAT. SALINE LOCK NOW. MEDS GIVEN PER AUG. HOURLY ROUNDING PERFORMED. ISOLATION INTACT. PAIN THROUGHOUT SHIFT. OT WORKED WITH PT THIS SHIFT. PT HAS BEEN EATING WELL. HEART MONITOR ATTACHED AT SR. CALL LIGHT WITH IN REACH. WILL CONTINUE TO MONITOR.
[2021-02-19 19:32] LABS: BE 6.3 mmol/L (-2 to +3); PO2 84.2 mmHg (75.0-100.0); pH 7.448 (7.340-7.450)
[2021-02-20] VITALS (8 sets, daily range): BP systolic 103–142; BP diastolic 45–78
[2021-02-20 05:21] LABS: HEMATOCRIT 31.2 % (37.0-47.0); HEMOGLOBIN 10.1 gm/dL (12.0-15.0); MCHC 32.4 g/dL (28.0-37.0); MCV 83.3 fL (80.0-100.0); MPV 8.6 fl. (7.2-11.1); RBC 3.75 mil/uL (4.20-5.00); RDW-CV 16.9 % (10.5-14.5); WBC 10.1 thou/uL (4.0-11.0)
[2021-02-20 05:46] LABS: ALBUMIN 2.5 g/dL (3.4-5.0); CALCIUM 8.4 mg/dL (8.5-10.1); CREATININE 0.6 mg/dL (0.6-1.3); MAGNESIUM 2.3 mg/dL (1.8-2.4); POTASSIUM 4.3 mmol/L (3.5-5.1); TOTAL BILIRUBIN 0.9 mg/dL (<0.1-1.0); TOTAL PROTEIN 5.7 g/dL (6.4-8.2)
--- NOTE | 2021-02-20 11:49 | NUR ---
The patient is alert. Able to make needs known. Denies CP or SOB. Sr on the monitor. Merdicated for constipation. Transferred to the recliner after breakfast. Call light within reach.
--- NOTE | 2021-02-20 14:46 | NUR ---
Pt will be inpt for several more days. Pt on bipap 55L, continue to wean
--- NOTE | 2021-02-20 19:07 | NUR ---
CARE OF THIS PATIENT ASSUMED BY THIS FITTER MECHANIC, REPORT RECEIVED FROM DAMARIS PAEZ.
[2021-02-21] VITALS (7 sets, daily range): BP systolic 107–160; BP diastolic 46–78
[2021-02-21 04:15] LABS: HEMATOCRIT 30.7 % (37.0-47.0); HEMOGLOBIN 9.9 gm/dL (12.0-15.0); MCH 26.7 pg (26.0-34.0); MCHC 32.3 g/dL (28.0-37.0); MCV 82.7 fL (80.0-100.0); MPV 8.7 fl. (7.2-11.1); NUCLEATED RBCS 0 /100WBC; PLATELET COUNT* 200 thou/uL (150-400); RBC 3.71 mil/uL (4.20-5.00); RDW-CV 16.7 % (10.5-14.5); WBC 11.7 thou/uL (4.0-11.0)
[2021-02-21 05:01] LABS: ALBUMIN 2.2 g/dL (3.4-5.0); CALCIUM 8.4 mg/dL (8.5-10.1); CREATININE 0.7 mg/dL (0.6-1.3); MAGNESIUM 2.7 mg/dL (1.8-2.4); POTASSIUM 4.3 mmol/L (3.5-5.1); TOTAL BILIRUBIN 0.9 mg/dL (<0.1-1.0); TOTAL PROTEIN 5.4 g/dL (6.4-8.2)
[2021-02-21 05:44] LABS: ABSOLUTE LYMPHOCYTES 0.1 thou/uL (0.8-5.3); ABSOLUTE MONOCYTES 0.1 thou/uL (0.0-1.2); ABSOLUTE NEUTROPHILS 11.5 thou/uL (1.6-8.1); ANISOCYTOSIS 1+; OVALOCYTES Occasional; PLATELET ESTIMATE ADEQUATE; POIKILOCYTOSIS 1+
--- NOTE | 2021-02-21 07:16 | NUR ---
REPORT GIVEN TO DAMARIS PAEZ, CARE RELINQUISHED.
--- NOTE | 2021-02-21 11:21 | NUR ---
The patient is alert. Able to make needs known. Call light within reach. SR on the monitor. Transfer with assistance.
--- NOTE | 2021-02-21 13:18 | NUR ---
Nutrition: reassessment. Spoke with RN. Pt still eating well. Wt stable, 153#. Labs: alb 2.2, prealb 11.4, BG 132. No significant nutritional changes since last assessment. Mild to low nutrition risk.
--- NOTE | 2021-02-21 14:48 | NUR ---
No weekend dc. Pt on 55L HF
[2021-02-22 01:49] VITALS: BP 117/57
[2021-02-22 05:20] LABS: CALCIUM 8.2 mg/dL (8.5-10.1); CREATININE 0.6 mg/dL (0.6-1.3); MAGNESIUM 2.6 mg/dL (1.8-2.4); POTASSIUM 4.3 mmol/L (3.5-5.1)
[2021-02-22 05:22] VITALS: BP 128/72
[2021-02-22 08:00] VITALS: BP 111/57
[2021-02-22 12:42] VITALS: BP 106/49
[2021-02-22 15:55] VITALS: BP 123/50
--- NOTE | 2021-02-22 17:17 | NUR ---
PATIENT RESTING IN BED. PATIENT IS UP WITH ASSIST WITH GB/WALKER. PATIENT DENIES ANY PAIN. PATIENT IS ON 13L/HFC. PATIENT HAS GOOD APPETITE. PATIENT HAD VISIT FROM SON THIS AFTERNOON. PATIENT DENIES ANY NEEDS AT THIS TIME. CALL LIGHT WITHIN REACH.
[2021-02-22 20:15] VITALS: BP 113/46
[2021-02-23 01:41] VITALS: BP 122/54
--- NOTE | 2021-02-23 05:23 | NUR ---
PT SLEPT ON AND OFF OVERNIGHT BUT NOT GOOD PREVIOUS NIGHT. UP WITH SBA AND WALKER TO BSC AND CHAIR. O2 13L HFC SATS 92%. RT TX GIVEN. TELE SR. R CHEST PAC. AOX4, ABLE TO USE CALL LITE AND MAKE NEEDS KNOWN. R LEG 25% WB.
[2021-02-23 05:53] VITALS: BP 108/50
[2021-02-23 07:50] VITALS: BP 124/78
[2021-02-23 12:00] VITALS: BP 121/53
[2021-02-23 16:00] VITALS: BP 113/52
--- NOTE | 2021-02-23 19:47 | NUR ---
PATIENT RESTING IN BED. PATIENT IS UP WITH STANDBY ASSIST WITH WALKER. PATIENT DENIES ANY PAIN. PATIENT DENIES ANY TROUBLE BREATHING. OXYGEN IS ON AT 11L/HFC. PATIENT HAS GOOD APPETITE. PATIENT DENIES ANY NEEDS AT THIS TIME. CALL LIGHT WITHIN REACH.
[2021-02-23 20:35] VITALS: BP 121/48
[2021-02-24 01:20] VITALS: BP 121/52
[2021-02-24 06:00] VITALS: BP 127/52
[2021-02-24 06:06] LABS: HEMATOCRIT 29.7 % (37.0-47.0); HEMOGLOBIN 9.4 gm/dL (12.0-15.0); MCH 26.3 pg (26.0-34.0); MCHC 31.6 g/dL (28.0-37.0); MPV 9.2 fl. (7.2-11.1); NUCLEATED RBCS 0 /100WBC; PLATELET COUNT* 147 thou/uL (150-400); RBC 3.58 mil/uL (4.20-5.00); RDW-CV 16.9 % (10.5-14.5); WBC 13.5 thou/uL (4.0-11.0)
--- NOTE | 2021-02-24 06:09 | NUR ---
PT SLEPT OFF AND ON OVERNIGHT. UP WITH WALKER AND SBA TO BSC TO VOID. O2 10L HFNC THIS MORNING. OCC LOOSE PRODUCTIVE COUGH HEARD. R CHEST PAC, IV STEROID GIVEN ORDERED AND ABX.TELE SR. ABLE TO USE CALL LITE AND MAKE NEEDS KNOWN.
[2021-02-24 06:18] LABS: ALBUMIN 2.1 g/dL (3.4-5.0); ALKALINE PHOSPHATASE 81 U/L (46-116); ANION GAP < 0 mmol/L (7-16); BUN 49 mg/dL (7-18); CALCIUM 8.3 mg/dL (8.5-10.1); CHLORIDE 107 mmol/L (98-107); CO2 37 mmol/L (21-32); CREATININE 0.7 mg/dL (0.6-1.3); GLUCOSE 142 mg/dL (70-99); MAGNESIUM 2.4 mg/dL (1.8-2.4); POTASSIUM 4.3 mmol/L (3.5-5.1); SGOT 9 U/L (15-37); SGPT 13 U/L (30-65); SODIUM 143 mmol/L (136-145); TOTAL BILIRUBIN 0.5 mg/dL (<0.1-1.0); TOTAL PROTEIN 5.3 g/dL (6.4-8.2)
[2021-02-24 07:50] LABS: ABSOLUTE LYMPHOCYTES 0.8 thou/uL (0.8-5.3); ABSOLUTE MONOCYTES 0.4 thou/uL (0.0-1.2); ABSOLUTE NEUTROPHILS 12.3 thou/uL (1.6-8.1)
[2021-02-24 07:51] LABS: PLATELET ESTIMATE DECREASED
[2021-02-24 07:52] LABS: ANISOCYTOSIS 1+; POIKILOCYTOSIS 1+
[2021-02-24 08:35] VITALS: BP 113/51
[2021-02-24 12:00] VITALS: BP 142/59
--- NOTE | 2021-02-24 15:24 | NUR ---
Anticipate a few more days in the hospital. Pt on 10L HHFNC. Improving. ARU consulted. Therapies to see.
[2021-02-24 16:00] VITALS: BP 114/67
--- NOTE | 2021-02-24 18:27 | NUR ---
PT A&Ox4. VITALS STABLE. IV PATENT. IV LASIX GIVEN, URINATING FREQUENTLY. UP WITH STB. DENIED PAIN. 10L HIFLOW OX. FALL PRECAUTIONS IN PLACE. WILL CONTINUE TO MONITOR.
[2021-02-24 20:00] VITALS: BP 116/48
[2021-02-25] VITALS: BP 117/43
[2021-02-25 04:00] VITALS: BP 125/50
--- NOTE | 2021-02-25 07:15 | NUR ---
CHANGE OF SHIFT REPORT GIVEN PATIENT SEEN AT BEDSIDE, IN BED RESTING ASSUMED PATIENT CARE
[2021-02-25 07:22] LABS: ABSOLUTE LYMPHOCYTES 0.2 thou/uL (0.8-5.3); ABSOLUTE MONOCYTES 0.7 thou/uL (0.0-1.2); ABSOLUTE NEUTROPHILS 14.7 thou/uL (1.6-8.1); BASOPHILS 0.2 %; HEMATOCRIT 29.9 % (37.0-47.0); HEMOGLOBIN 9.4 gm/dL (12.0-15.0); LYMPHOCYTES 1.5 %; MCH 26.1 pg (26.0-34.0); MCHC 31.4 g/dL (28.0-37.0); MONOCYTES 4.2 %; MPV 9.7 fl. (7.2-11.1); NUCLEATED RBCS 0 /100WBC; PLATELET COUNT* 134 thou/uL (150-400); POLYS 94.1 %; RDW-CV 16.8 % (10.5-14.5); WBC 15.7 thou/uL (4.0-11.0)
[2021-02-25 07:46] LABS: ALBUMIN 2.5 g/dL (3.4-5.0); CALCIUM 8.7 mg/dL (8.5-10.1); CREATININE 0.6 mg/dL (0.6-1.3); MAGNESIUM 2.3 mg/dL (1.8-2.4); POTASSIUM 3.7 mmol/L (3.5-5.1); TOTAL BILIRUBIN 0.6 mg/dL (<0.1-1.0); TOTAL PROTEIN 5.6 g/dL (6.4-8.2)
[2021-02-25 08:00] VITALS: BP 113/41
[2021-02-25 12:42] VITALS: BP 99/44
--- NOTE | 2021-02-25 15:57 | NUR ---
Anticipate dc in a few days. Pt on 12L HHFNC. CXR worse. CT of chest today.
[2021-02-25 16:00] VITALS: BP 96/68
[2021-02-25 19:40] VITALS: BP 100/44
--- NOTE | 2021-02-25 21:26 | NUR ---
PT IS CURRENTLY ON 15L AND NRB WITH SATS BETWEEN 90-93. PT SAID THAT SHE DOES NOT WANT TO TRY HHFNC OR BIPAP. SHE IS SUPPOSED TO BE GETTING A THORACENTESIS TOMORROW 02/26/2021.
[2021-02-26] VITALS: BP 130/46
[2021-02-26 04:00] VITALS: BP 125/96
--- NOTE | 2021-02-26 05:11 | NUR ---
PT SLEPT MOST OF SHIFT. ASSESSMENT DOCUMENTED. MEDS GIVEN PER E-MAR. PORT PATENT. FALL PRECAUTIONS IN PLACE. PT ON 15L HFNC WITH NONREBREATHER OVER IT TO KEEP SATS GREATER THAN 90%. PT REMAINED NPO AFTER 0000. WILL CONTINUE WITH PLAN OF CARE.
[2021-02-26 06:15] LABS: ABSOLUTE LYMPHOCYTES 0.3 thou/uL (0.8-5.3); ABSOLUTE MONOCYTES 0.7 thou/uL (0.0-1.2); ABSOLUTE NEUTROPHILS 18.7 thou/uL (1.6-8.1); BASOPHILS 0.2 %; HEMATOCRIT 29.6 % (37.0-47.0); HEMOGLOBIN 9.4 gm/dL (12.0-15.0); LYMPHOCYTES 1.3 %; MCH 26.2 pg (26.0-34.0); MCHC 31.7 g/dL (28.0-37.0); MCV 82.5 fL (80.0-100.0); MONOCYTES 3.4 %; MPV 9.6 fl. (7.2-11.1); NUCLEATED RBCS 0 /100WBC; PLATELET COUNT* 124 thou/uL (150-400); POLYS 95.1 %; RBC 3.59 mil/uL (4.20-5.00); RDW-CV 16.4 % (10.5-14.5); WBC 19.7 thou/uL (4.0-11.0)
[2021-02-26 06:31] LABS: CALCIUM 8.6 mg/dL (8.5-10.1); CREATININE 0.7 mg/dL (0.6-1.3); MAGNESIUM 2.3 mg/dL (1.8-2.4); PHOSPHORUS* 2.8 mg/dL (2.5-4.9); POTASSIUM 3.8 mmol/L (3.5-5.1); TOTAL BILIRUBIN 0.5 mg/dL (<0.1-1.0); TOTAL PROTEIN 5.4 g/dL (6.4-8.2)
[2021-02-26 08:00] VITALS: BP 113/49
[2021-02-26 13:21] LABS: BF RBC 5558 /mm3; TOTAL CELL COUNT 1645 /mm3
[2021-02-26 13:26] VITALS: BP 101/39
[2021-02-26 13:44] LABS: BF EOSINOPHILS 1 %; BF LYMPHOCYTES 14 %; BF POLYS 85 %; BF TISSUE 18 /100 WBC; CLARITY HAZY; SOURCE PLEURAL FLUID; TOTAL VOLUME 360 ml
--- NOTE | 2021-02-26 13:57 | NUR ---
Pt remains on 15L NRB, continue to wean. Thora today. Video swallow planned. Plan ARU at wa.
[2021-02-26 16:43] VITALS: BP 114/50
--- NOTE | 2021-02-26 18:43 | NUR ---
PT SITTING UP ON HER CHAIR THIS DAY. PT HAD THORACENTIS AT HER BEDSIDE. CULTURES WERE SENT TO THE LAB. PT SHOULD HAVE VIEDO SWALLOW TOMORROW. SPOKE TO MARIA G BARRERA'S RN AND WAS TOLD SHE WILL BE 25% WT. BEARING FOR NOW ON. PT UP WITH ASSISTANCE TIMES ONE PT CONTINUES ON 12L OF OXYGEN AT ALL TIMES. PT HAS A RIGHT UPPER CHEST PORT A CATH, TYHAT FLUSHES WELL AND HAS A NICE BLOOD RETURN NOTED. WILL CONTINUE TO MONITOR PLAN OF CARE. VSS AFEBRILE.
[2021-02-26 20:36] VITALS: BP 110/48
--- NOTE | 2021-02-26 22:00 | CON ---
[address] [address] CONSULTATION Name: TJ AGUILERA Room: [address] ADM IN M.R.#: [id number] Admission: 02/10/21 Attend Phys: Srikanth Galaviz MD Discharge: Date of : 45 Report #: [id number] THIS REPORT FOR: cc: KATYA BANGURA MD, HEATHER L. MD Greiner, Robert F. II DO ~ DATE OF CONSULTATION: 02/18/2021 HISTORY OF PRESENT ILLNESS: The patient was previously admitted for the last several days to the COVID Unit. She had decline in her breathing, so she vaccinated for COVID. Four or five days ago, she was feeling unwell and came to the Emergency Department. She was subsequently admitted. The patient had spent several days in the COVID Unit on isolation and at one point described standing up and falling onto the right hip without assistance. The patient states she did get dizzy and short of breath. Had pain on the right hip at that time. She returned to her bed and x-rays were taken which would be a right hip fracture. The patient states the pain is a dull ache. It lasts for several hours throughout the day, can get to 6/10. It is worse with movement and improved at rest. The patient denies any significant lower extremity weakness other than the pain in the hip. The patient at this time is on respiratory support in the COVID Unit on nonrebreather. She has cough, had had some fevers as well as nausea. We were consulted for further evaluation. PAST MEDICAL HISTORY: 1. Coronary artery disease. 2. Carotid stenosis. 3. Chest pain. 4. COPD exacerbation. 5. COVID-19. 6. Dizziness. 7. Dysfunctional uterine bleeding. 8. GI bleed. 9. Hypertension. 10. Previous lung cancer. 11. Neutropenic fever. 12. Palpitations. 13. Respiratory failure. 14. Sepsis. 15. Previous STEMI. 16. Tobacco abuse. ALLERGIES: LOSARTAN, PENICILLIN, SULFA. MEDICATIONS: [place] [address] CONSULTATION Name: TJ AGUILERA Room: [address] IN [facility]#: [id number] Admission: 02/10/21 Attend Phys: Srikanth Galaviz MD Discharge: Date of : 45 Report #: [id number] PAST SURGICAL HISTORY: 1. Cardiac stents. 2. Oral surgery. 3. Past kidney stones. 4. History of lung cancer treatment. REVIEW OF SYSTEMS: A 12-system review of systems is performed and negative other than pertinent positives in HPI. PHYSICAL EXAMINATION: VITAL SIGNS: Pulse ox 94, blood pressure 99/43, temperature 98.2, pulse 93, respirations 20. GENERAL: The patient is alert and oriented female, resting in bed, in no acute distress. HEENT: Head normocephalic, atraumatic. Eyes: Pupils equal, round, reactive to light and accommodation. Nose clear to evaluation. No ulceration. Moist mucous membranes. NECK: Supple. No JVD, no bruit. CARDIOVASCULAR: Regular rate and rhythm. Positive capillary refill. Positive pulses bilaterally. LUNGS: Diminished. Basilar crepitation. ABDOMEN: Soft. Bowel sounds present. No masses. EXTREMITIES: The patient has no clubbing, cyanosis or edema. Peripheral pulses normal. SKIN: Normal color. PSYCHIATRIC: The patient has appropriate mood and affect. NEUROLOGIC: The patient is alert and conversational. IMAGING: Right hip x-ray does show an impacted nondisplaced subcapital hip fracture with minimal impaction. X-ray of the elbow yields no fractures, only soft tissue swelling. LABORATORY STUDIES: White blood cells 8.6, hemoglobin 10.5, hematocrit 33.0. INR is 1.1. IMPRESSION: 1. Right hip subcapital fracture, nondisplaced and impacted. 2. COVID-19 with respiratory distress. 3. Neutropenic fever. 4. Chronic obstructive pulmonary disease. 5. [place] [address] CONSULTATION Name: TJ AGUILERA Room: [address] IN [facility].#: [id number] Admission: 02/10/21 Attend Phys: Srikanth Galaviz MD Discharge: Date of : 45 Report #: [id number] PLAN: At this time, the patient is discussed in detail, both surgical and nonsurgical options. Due to her difficulty with breathing as well as infiltrates in her lungs and fever, she is discussed the nonsurgical options and would like to proceed. We discussed possibility of avascular necrosis as well as displacement of the fracture, but not surgical intervention to fixate this fracture. The patient understands and assuming this risk declined surgery. We will continue to monitor with x-rays preoperatively to evaluate fracture healing and union or any complication due to this. All questions were answered with the patient. She wished to proceed with this closed treatment. I appreciate this consultation. <ELECTRONICALLY SIGNED> By: Elliott Tobar II, 02/26/210 11 0119Elliott Tobar II DO /nt
[2021-02-27 02:17] LABS: HEMATOCRIT 31.3 % (37.0-47.0); HEMOGLOBIN 9.9 gm/dL (12.0-15.0); MCH 26.2 pg (26.0-34.0); MCHC 31.7 g/dL (28.0-37.0); MCV 82.5 fL (80.0-100.0); MPV 10.3 fl. (7.2-11.1); RBC 3.8 mil/uL (4.20-5.00); RDW-CV 16.7 % (10.5-14.5); WBC 20.8 thou/uL (4.0-11.0)
[2021-02-27 02:19] VITALS: BP 111/52
[2021-02-27 02:38] LABS: ALBUMIN 1.9 g/dL (3.4-5.0); CREATININE 0.8 mg/dL (0.6-1.3); MAGNESIUM 2.3 mg/dL (1.8-2.4); POTASSIUM 3.5 mmol/L (3.5-5.1); TOTAL BILIRUBIN 0.5 mg/dL (<0.1-1.0); TOTAL PROTEIN 5.5 g/dL (6.4-8.2)
[2021-02-27 04:37] VITALS: BP 115/67
--- NOTE | 2021-02-27 05:08 | NUR ---
PATIENT ALERT/ORIENTED X4; PLEASANT. PT SLEPT WELL DURING FIRST HALF OF THE NIGHT THEN MOVED TO RECLINER. PT ON HIGH FLOW CANNULA AT 15LITERS AND NON-REBREATHER AT 15LITERS. PT UP TO BSC WITH STANDBY. PT DESAT WITH MOVEMENT AND SATS ARE SLOW TO COME BACK UP. PT WITH RT CHEST PAC; SALINE LOCKED. ABLE TO DRAW/FLUSH WITH NO RESISTANCE. PT DENIES NEEDS AT THIS TIME. FREQUENTLY USED ITEMS AND CALL LIGHT WITHIN REACH. WILL CONTINUE TO MONITOR.
[2021-02-27 08:00] VITALS: BP 100/44
[2021-02-27 12:00] VITALS: BP 95/44
--- NOTE | 2021-02-27 15:28 | NUR ---
Pt improving, now on 15L. Anticipate dc in a few days, plan to ARU
[2021-02-27 16:00] VITALS: BP 107/46
--- NOTE | 2021-02-27 17:51 | NUR ---
PATIENT RESTING IN BED. 15L HIGH FLOW NASAL CANNULA, SAT 91%. ALERT AND ORIENTED X4. X1 ASSIST. PORT TO RIGHT CHEST, SALINE LOCKED. DRESSING C/D/I. BED IN LOW/LOCKED POSITION. CALL LIGHT WITHIN REACH. ALL QUESTIONS AND CONCERNS ADDRESSED.
--- NOTE | 2021-02-27 17:59 | NUR ---
1630: BLOOD SUGAR 314. DR. GUAJARDO NOTIFIED. NO NEW ORDERS. WILL CONTINUE TO MONITOR.
[2021-02-28] VITALS (27 sets, daily range): BP systolic 58–117; BP diastolic 28–62
[2021-02-28 10:58] LABS: HEMATOCRIT 29.3 % (37.0-47.0); HEMOGLOBIN 9.3 gm/dL (12.0-15.0); MCH 26.1 pg (26.0-34.0); MCHC 31.7 g/dL (28.0-37.0); MCV 82.2 fL (80.0-100.0); NUCLEATED RBCS 0 /100WBC; PLATELET COUNT* 100 thou/uL (150-400); RBC 3.57 mil/uL (4.20-5.00); RDW-CV 16.7 % (10.5-14.5); WBC 22.9 thou/uL (4.0-11.0)
[2021-02-28 11:10] LABS: ALBUMIN 1.5 g/dL (3.4-5.0); CREATININE 1.1 mg/dL (0.6-1.3); MAGNESIUM 2.5 mg/dL (1.8-2.4); POTASSIUM 3.8 mmol/L (3.5-5.1); TOTAL BILIRUBIN 0.5 mg/dL (<0.1-1.0); TOTAL PROTEIN 5.1 g/dL (6.4-8.2)
[2021-02-28 11:28] LABS: ABSOLUTE NEUTROPHILS 22.9 thou/uL (1.6-8.1); PLATELET ESTIMATE ADEQUATE
[2021-02-28 15:00] LABS: BE 7.6 mmol/L (-2 to +3); PCO2 41.7 mmHg (35.0-45.0); pH 7.496 (7.340-7.450)
[2021-02-28 15:05] LABS: PO2 56.4 mmHg (75.0-100.0)
--- NOTE | 2021-02-28 15:23 | EKG ---
[place] [address] ELECTROCARDIOGRAM REPORT Name: TJ AGUILERA Room: [address] ADM IN M.R.#: [id number] Admission: 02/10/21 Attend Phys: Srikanth Galaviz, Discharge: Date of : 45 Date of Service: 02/28/21 1426 Report #: [id number] THIS REPORT FOR: //name// [facility] Test Date: 2021-02-28 Test Time: 14:26:42 Pat Name: TJ AGUILERA Department: Room: [address] Gender: F Disposal Man: SHENG : 1945 Requested By: Shayy Hernández Order Number: [id number] Reading MD: Sam Blanco Measurements Intervals [place] Rate: 181 P: [place]: QRS: 50 QRSD: 73 T: 246 QT: 222 QTc: 386 Interpretive Statements Atrial fibrillation with rapid V-rate Repolarization abnormality, prob rate related Baseline wander in lead(s) V5 Compared to ECG 02/10/2021 10:06:35 Early repolarization now present Sinus rhythm no longer present Electronically Signed On 02-28-2021 15:23:42 CDT by Sam Blanco [email or web address] <ELECTRONICALLY SIGNED> By: Sam Blanco MD, [facility] 02/28/21 1523 1426 1426 Sam Blanco MD, FAC /EPI
--- NOTE | 2021-02-28 15:40 | NUR ---
Pt being transferred to ICU. ARU following.
--- NOTE | 2021-02-28 16:35 | NUR ---
1414: NURSE INTO PATIENT'S ROOM AT THIS. RN, HOOD AND MARS GUTIÉRREZ AT BEDSIDE. PATIENT HEART RATE 160-175. SAT AROUND 85-89% ON BIPAP. 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 BIPAP PUT BACK ON PATIENT. SAT REMAINED UNDER 90%, HEART TACHY. STAT EKG AND CHEST XRAY ORDERED. 1430: RAPID RESPONSE CALLED AT THIS TIME. DR. SWANSON AT BEDSIDE. ORDERED BOLUS AMIODARONE 150MG, ABG AND CARDIO CONSULT. 1445: DR. GUAJARDO AND DR. SWANSON AT BEDSIDE. IT WAS DECIDED THAT PATIENT WOULD BENEFIT FROM ICU CARE. DR. SWANSON AND DR. GUAJARDO NOTIFIED PATIENT'S SON, MIRIAM OF HER CONDITION AND THE DECISION TO TRANSFER PATIENT TO ICU. 1545: REPORT GIVEN TO ICU NURSE. ALL QUESTIONS ADDRESSED 1600: PATIENT TRANSFERED TO ICU VIA BED, ACCOMPANIED BY THIS RN, HOOD RN AND RESPIRATORY THERAPIST. PATIENT TRANSFERED WITHOUT COMPLICATIONS.
[2021-03-01] VITALS (147 sets, daily range): BP systolic 65–176; BP diastolic 17–103
--- NOTE | 2021-03-01 00:39 | NUR ---
02/28/21 @ 3138 SPOKE WITH SON, MIRIAM. HE VERIFIED HIS MOHTER'S WISHES TO NOT BE INTUBATED. SHE IS A DNR. THIS RN ASSURED HIM HE WOULD BE CALLED WITH ANY STATUS CHANGED OR DECLINE TONIGHT.
[2021-03-01 05:19] LABS: HEMATOCRIT 30.3 % (37.0-47.0); HEMOGLOBIN 9.6 gm/dL (12.0-15.0); MCHC 31.8 g/dL (28.0-37.0); MCV 81.7 fL (80.0-100.0); MPV 10.9 fl. (7.2-11.1); RBC 3.71 mil/uL (4.20-5.00); RDW-CV 16.5 % (10.5-14.5); WBC 32.6 thou/uL (4.0-11.0)
[2021-03-01 05:38] LABS: CREATININE 1.2 mg/dL (0.6-1.3); POTASSIUM 4.7 mmol/L (3.5-5.1)
--- NOTE | 2021-03-01 11:06 | CON ---
[address] [address] CONSULTATION Name: TJ AGUILERA Room: [address] ADM IN M.R.#: [id number] Admission: 02/10/21 Attend Phys: Srikanth Galaviz MD Discharge: Date of : 45 Report #: [id number] THIS REPORT FOR: cc: DEISY STOLL MD, HEATHER L. MD Blick, David R. MD [facility] ~ cc: Deisy Stoll MD DATE OF CONSULTATION: 02/28/2021 CARDIOLOGY CONSULTATION HISTORY OF PRESENT ILLNESS: The patient is a 75-year-old single female who I was asked to see in the hospital day after she is noted to be in atrial fibrillation. The patient had a stent placed in the right coronary artery in 2016. She underwent a nuclear stress test in 12/2018 that showed no ischemia with an ejection fraction of greater than 65%. Previous carotid Doppler study showed less than 50% stenosis. I actually last saw her in the clinic a year ago when she was doing well. She does have a history of adenocarcinoma of the lung, this was unresectable and she was treated with chemotherapy and radiation therapy at . She was admitted to the hospital 2 weeks ago on 02/10 with shortness of breath. She tested positive for COVID-19. She is having fever and cough. Her shortness of breath has not improved. Today, she went into a rapid heartbeat. I was asked to see her for further evaluation and treatment. Of note, she was actually in the hospital in December with palpitations. She was sent home with an event recorder. She denies recent chest pain, syncope. She has some fever and edema. PAST MEDICAL HISTORY: She has had no surgical procedures. She does have a history of hypertension, hyperlipidemia, lower extremity edema. CURRENT MEDICATIONS: Her only medications include an inhaler, oxygen as needed, she has been on metoprolol and Plavix. ALLERGIES: SHE HAS AN ALLERGY TO PENICILLIN, SULFA DRUGS. FAMILY HISTORY: Negative for heart disease. SOCIAL HISTORY: She is , lives in [place]. 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 Continues to smoke half pack of cigarettes a day. No alcohol abuse. REVIEW OF SYSTEMS: No history of stroke. She has COPD. No history of liver disease, kidney disease, chronic skin condition, psychiatric illness[place] [address] CONSULTATION Name: TJ AGUILERA Room: [address]#: [id number] Admission: 02/10/21 Attend Phys: Srikanth Galaviz MD Discharge: Date of : 45 Report #: [id number] PHYSICAL EXAMINATION: GENERAL: Revealed an elderly female who appeared in severe respiratory distress. VITAL SIGNS: She had a blood pressure of 100/60, pulse is 130 and irregular. She is afebrile. HEENT: She was anicteric. Conjunctivae are pink. Mucosa moist. NECK: Veins not appear distended. CHEST: With decreased breath sounds in both lung barrera. HEART: Irregular, tachycardia. No significant murmurs. ABDOMEN: Soft. EXTREMITIES: Had no pitting edema. SKIN: Cool and dry. NEUROLOGIC: Nonfocal. LABORATORY DATA: Her ECG on admission 2 weeks ago showed a sinus rhythm with no significant ST or T-wave change. ECG today shows atrial fibrillation with rapid ventricular response rate, nonspecific ST segment changes. Her workup; she actually had an echocardiogram done in December that showed ejection fraction 60%, evidence of mild aortic stenosis with a peak gradient across the aortic valve of 16 mmHg. There is mild tricuspid insufficiency with estimated pulmonary artery pressure of 45 mmHg. Her x-rays; she had a portable chest x-ray done today that showed cardiomegaly, left lower lung field consolidation. She had a CT scan of chest using a PE protocol 2 days ago that showed no pulmonary embolus, multifocal pneumonia and atelectasis. Her lab work; her sodium 143, creatinine 1.1, albumin is 1.5. Her hemoglobin is 9.3. IMPRESSION AND RECOMMENDATIONS: 1. Rapid atrial fibrillation. I would recommend starting diltiazem for rate control. I would consider anticoagulation. I would not recommend attempts at cardioversion at this time. I would check thyroid function studies. 2. Coronary artery disease. Previous stent. I would consider at least aspirin 81 mg a day. 3. Hypertension. The patient had been on clonidine and beta israel in the past. The patient cannot tolerate an ARB in the past because of edema. 4. Hyperlipidemia. The patient has been a statin drug. 5. Tobacco abuse. 6. History of lung cancer. 7. COVID-19 pneumonia. The patient may require intubation. <ELECTRONICALLY SIGNED> By: Petar Banda MD, FACC 03/01/21 1106 1354 1935Sam Blanco MD, FACC /nt
--- NOTE | 2021-03-01 18:40 | NUR ---
INFORMED AND PATIENT IS UNABLE TO REMOVE BIPAP FOR THE SMALLEST AMOUNT OF TIME WITHOUT DESATURATING. ALL PO MEDS TO BE HELD PER DUE TO RISK OF ASPIRATION.
[2021-03-02] VITALS (91 sets, daily range): BP systolic 51–190; BP diastolic 16–72
[2021-03-02 05:14] LABS: HEMOGLOBIN 9.9 gm/dL (12.0-15.0); MCH 25.8 pg (26.0-34.0); MCHC 31.8 g/dL (28.0-37.0); MPV 11.4 fl. (7.2-11.1); RBC 3.83 mil/uL (4.20-5.00); WBC 35.5 thou/uL (4.0-11.0)
[2021-03-02 05:41] LABS: CALCIUM 8.8 mg/dL (8.5-10.1); CREATININE 1.5 mg/dL (0.6-1.3); POTASSIUM 4.5 mmol/L (3.5-5.1)
--- NOTE | 2021-03-02 07:33 | NUR ---
PT WAS ANXIOUS AND RESTLESS AT THE BEGINNING OF SHIFT. PT WAS IMPULSIVE. RN DISCUSSED W/ PT PLACING AN NG TUBE. PT WAS IN AGREEMENT. NG TUBE PLACED PER ORDER. KUB XRAY COMPLETE TO CONFIRM PLACEMENT. SEE DOCUMENTATION FOR DETAILS. PT WAS VERY ANXIOUS AFTER NG TUBE PLACED. PT PULLED OFF BIPAP MASK. PT PULLED NG TUBE OUT NURSING HOME. PT WAS PULLING ON CHEST PORT AND IV LINES. PRN ATIVAN ADMINISTERED PRESCRIBED. PRECEDEX INCREASED TO 1.4. MD ALMAGUER NOTIFIED VIA PHONE LAST NOC. NO NEW ORDERS OBTAINED. MD ALMAGUER SAID "WE WILL DISCUSS THE PLAN FOR HER IN THE MORNING WITH DR. RUEDA AND/OR DR. GUAJARDO." PT CALMED DOWN AFTER MEDICATIONS ADMINISTERED. PT DESATS QUICKLY WHEN O2 IS REMOVED. NO ACUTE CHANGES OCCURED THIS SHIFT. PT CURRENTLY ASLEEP AND RESTING. I SPOKE WITH PT'S SON THAT MORNING AND GAVE AN UPDATE.
[2021-03-03] VITALS (34 sets, daily range): BP systolic 98–152; BP diastolic 44–66
[2021-03-03 06:33] LABS: HEMATOCRIT 29.4 % (37.0-47.0); HEMOGLOBIN 9.3 gm/dL (12.0-15.0); MCH 25.6 pg (26.0-34.0); MCHC 31.7 g/dL (28.0-37.0); MCV 80.7 fL (80.0-100.0); MPV 11.9 fl. (7.2-11.1); RBC 3.64 mil/uL (4.20-5.00); RDW-CV 17.6 % (10.5-14.5)
[2021-03-03 06:49] LABS: CALCIUM 8.2 mg/dL (8.5-10.1); CREATININE 1.9 mg/dL (0.6-1.3); POTASSIUM 5.3 mmol/L (3.5-5.1)
--- NOTE | 2021-03-03 07:15 | NUR ---
PT REMAINS ON BIPAP. PT HAS LIGHT SEDATION MEDICATIONS TO HELP MANAGE ANXIETY. PT RESTED DURING THE NIGHT. PT AWAKES TO NOXIOUS STIMULUS. MEDICATIONS ADMINISTERED PRESCRIBED. SPOKE WITH PTS [id number], JIM VIA PHONE AND GAVE UPDATE. JIM VOICED "FAMILY IS CONCERNED ABOUT HER GETTING NUTRITIONS. SHE HASN'T EATEN FOR 4 DAYS NOW AND WE ARE CONCERNED." CONCERNS PASSED ALONG TO DAYSHIFT RN TO FOLLOW UP WITH MD REGARDING PLAN FOR NUTRITION. NO ACUTE CHANGES THIS SHIFT.
[2021-03-03 11:06] LABS: BODY FLUID PROTEIN 2.4 g/dL (())
--- NOTE | 2021-03-03 17:58 | NUR ---
PT DOES NOT TOLERATE HAVING BIPAP MASK ATTACHED OR REMOVED, PT ALSO DOES NOT TOLEATE MOVEMENT. BOTH CAUSES PT TO DESAT QUICKLY IN THE LOW 70'S AND TAKES EXTENDED PERIOD OF TIME TO RECOVER. PT REMAINS DNR DNI. ATTEMPTED TO CALL SON AT 0930 THIS AM TO DISCUSS PLAN OF CARE AND OPTION, WAS UNABLE TO REACH WAS ABLE TO GET IN TOUCH WITH SON ABOUT 1130 AND DISCUSSED PTS CONDITION. FAMILY WILL HAVE MEETING TONIGHT AND WOULD LIKE TO HAVE DR TO CALL THEM IN AM TO DISCUSSS OPTIONS INCLUDING POSSIBLE COMFORT CARE MEASURES ONLY. PTS O2 SAT LEVEL HAS DECREASED DAY HAS PROGRESSED. FAMILY IS AWARE. DR GASTELUM WAS NOTIFIED OF SATS IN UPPER 70'S-84% AT 1745 QAND NO NEW ORDERS RECIEVED. CLAUDIO INTACT AND PATENT WITH MINIMAL OUTPUT DRAINING CLOUDY YELLOW URINE.\ LUNG SOUNDS DECREASED ON RIGHT AND COURSE THROUGH OUT. MONITORS INTACT. BIPAP INTACT WITH SETTINGS OF 16/8, FIO2 100% AND RATE 20. NGT TO R NARES INTACT AND CLAMPED AT THIS TIME. WILL CONTINUE TO MONITOR
[2021-03-04] VITALS (9 sets, daily range): BP systolic 106–127; BP diastolic 45–50
--- NOTE | 2021-03-04 07:13 | NUR ---
PT REMAINS ON BIPAP. PT HAS LIGHT SEDATION MEDICATIONS TO HELP MANAGE ANXIETY. PT RESTED DURING THE NIGHT. PT AWAKES TO NOXIOUS STIMULUS. MEDICATIONS ADMINISTERED PRESCRIBED. O2 SATS REMAIN IN THE 80'S. PHYSICIAN IS AWARE. PT IS A DNR/DNI. IT WAS REPORTED THAT PT WANTS THE ATTENDING PHYSICIAN TO CONTACT SON MIRIAM AGUILERA TO DISCUSS COMFORT CARE. REPORT GIVEN TO JEANNINE ROCKWELL THIS AM REGARDING FAMILY'S REQUEST TO TALK W/ DOCTOR. NO ACUTE CHANGES THIS SHIFT.
--- NOTE | 2021-03-04 09:38 | NUR ---
ICU ROUNDS: PT TRANSFER TO ICU ON 02/28. PT ON BIPAP AT 60 LPM. "LIGHT" SEDATION TO HELP MANAGE ANXIETY. DNR.
--- NOTE | 2021-03-04 15:00 | NUR ---
Pt was made comfort care at ~1330. Family and Dr. Alcaraz at bedside. At 1355 I was notified by Dr. Alcaraz that the family was ready to withdraw care. PRN meds given and pt was taken off bipap and placed on NC for comfort. Pt passed with Dr. Alcaraz and family at bedside. TOD 1410. [facility] notified. Belongings given to Casper Stoner (son). home called. Post mortem care performed.
--- NOTE | 2021-03-04 17:48 | EKG ---
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1945 Requested By: Sam Blanco Order Number: [id number] Tuan MD: Petar Banda Measurements Intervals [place] Rate: 79 P: 38 [place]: 135 QRS: 10 QRSD: 96 T: -10 QT: 391 QTc: 449 Interpretive Statements Sinus rhythm Borderline low voltage, extremity leads Borderline ST depression, lateral leads Compared to ECG 02/28/2021 14:26:42 ST (T wave) deviation now present Atrial fibrillation no longer present Early repolarization no longer present Electronically Signed On 03-04-2021 17:48:37 CDT by Petar Banda [email or web address] <ELECTRONICALLY SIGNED> By: Petar Banda MD, [facility] 03/04/21 1748 4 4 Petar Banda MD, [facility] /EPI
--- NOTE | 2021-03-06 12:07 | PATH ---
[address] [address] PATHOLOGY RPT PROCEDURE Name: TJ AGUILERA Room: [address] IN [facility]#: [id number] Admission: 02/10/21 Date of : 45 Discharge: 03/04/21 Report #: [id number] Path Case #: [id number] Note [facility] Accession Number: [id number] TESTS RESULT FLAG UNITS REF RANGE LAB Clinician Provided Cytology Information No. of containers..01 Other (Miscellaneous) Source: 01 RIGHT PLEURAL FLUID DIAGNOSIS: 02 RIGHT PLEURAL FLUID NEGATIVE FOR MALIGNANT CELLS. REACTIVE MESOTHELIAL CELLS AND ACUTE AND CHRONIC INFLAMMATORY CELLS ARE PRESENT. THIS INTERPRETATION INCLUDES EVALUATION OF A CELL BLOCK. Signed out by: 02 Flash Gonzalez MD, Pathologist NPI- [id number] Performed by: 01 Ml Garcia, Meat And Seafood Clerk ([facility]) Gross description: 01 3.5ML, CLEAR YELLOW, 1 TP 1 CB /LCS 03/04/2021 1901 Local FLAG LEGEND: L-Low Normal,H-High Normal,LL-Alert Low,HH-Alert High <-Panic Low,>-Panic High,A-Abnormal,AA-Critical Abnormal Performed at: [address] [place] [address] Michael Montoya MD, [address] [place] [address] [address] [place] [address] Flash Gonzalez MD, Specimen Comment: A courtesy copy of this report has been sent to [phone], [phone] Specimen Comment: [id number] Specimen Comment: Report sent to / DR ROD Specimen Comment: A duplicate report has been generated due to demographic updates. Performed at: [address], [place], [place] [address] MD Michael Montoya MD Phone: [phone]
== END 2021-03-04 14:10 | DRG 871 ==
LOC: M.ERS 09:50 → M.ORTHSURG 10:53 → M.TBA-ER 10:53 → M.ORTHSURG 02-11 12:50 → M.2W 02-21 15:45 → M.ICU 02-28 16:08
PROVIDERS: Family Medicine; Internal Medicine; Internal Medicine Critical Care Medicine; ADMIT Internal Medicine; ATTEND Internal Medicine
PROC: XW033H5 Introduction of Tocilizumab into Peripheral Vein, Percutaneous Approach, New Technology Group 5 (ICD-10-PCS; principal; 2021-02-10)
PROC: XW033E5 Introduction of Remdesivir Anti-infective into Peripheral Vein, Percutaneous Approach, New Technology Group 5 (ICD-10-PCS; principal; 2021-02-10)
PROC: 5A0935A Assistance with Respiratory Ventilation, Less than 24 Consecutive Hours, High Flow/Velocity Cannula (ICD-10-PCS; 2021-02-12)
PROC: 0W993ZZ Drainage of Right Pleural Cavity, Percutaneous Approach (ICD-10-PCS; 2021-02-12)
PROC: 5A0935A Assistance with Respiratory Ventilation, Less than 24 Consecutive Hours, High Flow/Velocity Cannula (ICD-10-PCS; 2021-02-13)
PROC: 5A0935A Assistance with Respiratory Ventilation, Less than 24 Consecutive Hours, High Flow/Velocity Cannula (ICD-10-PCS; 2021-02-14)
PROC: 5A0935A Assistance with Respiratory Ventilation, Less than 24 Consecutive Hours, High Flow/Velocity Cannula (ICD-10-PCS; 2021-02-16)
PROC: 5A0935A Assistance with Respiratory Ventilation, Less than 24 Consecutive Hours, High Flow/Velocity Cannula (ICD-10-PCS; 2021-02-17)
PROC: 5A0935A Assistance with Respiratory Ventilation, Less than 24 Consecutive Hours, High Flow/Velocity Cannula (ICD-10-PCS; 2021-02-18)
PROC: 5A09357 Assistance with Respiratory Ventilation, Less than 24 Consecutive Hours, Continuous Positive Airway Pressure (ICD-10-PCS; 2021-02-19)
PROC: 5A0935A Assistance with Respiratory Ventilation, Less than 24 Consecutive Hours, High Flow/Velocity Cannula (ICD-10-PCS; 2021-02-20)
PROC: 5A09357 Assistance with Respiratory Ventilation, Less than 24 Consecutive Hours, Continuous Positive Airway Pressure (ICD-10-PCS; 2021-02-20)
PROC: 5A0935A Assistance with Respiratory Ventilation, Less than 24 Consecutive Hours, High Flow/Velocity Cannula (ICD-10-PCS; 2021-02-21)
PROC: 5A0935A Assistance with Respiratory Ventilation, Less than 24 Consecutive Hours, High Flow/Velocity Cannula (ICD-10-PCS; 2021-02-22)
PROC: 5A0935A Assistance with Respiratory Ventilation, Less than 24 Consecutive Hours, High Flow/Velocity Cannula (ICD-10-PCS; 2021-02-23)
PROC: 5A0935A Assistance with Respiratory Ventilation, Less than 24 Consecutive Hours, High Flow/Velocity Cannula (ICD-10-PCS; 2021-02-25)
PROC: 5A0935A Assistance with Respiratory Ventilation, Less than 24 Consecutive Hours, High Flow/Velocity Cannula (ICD-10-PCS; 2021-02-26)
PROC: 0W993ZZ Drainage of Right Pleural Cavity, Percutaneous Approach (ICD-10-PCS; 2021-02-26)
PROC: 5A0935A Assistance with Respiratory Ventilation, Less than 24 Consecutive Hours, High Flow/Velocity Cannula (ICD-10-PCS; 2021-02-27)
PROC: 5A09457 Assistance with Respiratory Ventilation, 24-96 Consecutive Hours, Continuous Positive Airway Pressure (ICD-10-PCS; 2021-02-28)
DX: A41.89 Other specified sepsis (principal); S72.011A Unspecified intracapsular fracture of right femur, initial encounter for closed fracture; U07.1 COVID-19; J12.82 Pneumonia due to coronavirus disease 2019; J80 Acute respiratory distress syndrome; D61.818 Other pancytopenia; J91.8 Pleural effusion in other conditions classified elsewhere; J44.0 Chronic obstructive pulmonary disease with (acute) lower respiratory infection; J44.1 Chronic obstructive pulmonary disease with (acute) exacerbation; B37.0 Candidal stomatitis; I10 Essential (primary) hypertension; I25.10 Atherosclerotic heart disease of native coronary artery without angina pectoris; E78.5 Hyperlipidemia, unspecified; I48.91 Unspecified atrial fibrillation; F17.210 Nicotine dependence, cigarettes, uncomplicated; S51.011A Laceration without foreign body of right elbow, initial encounter; X58.XXXA Exposure to other specified factors, initial encounter; F41.9 Anxiety disorder, unspecified; Z66 Do not resuscitate; Z51.5 Encounter for palliative care; Z95.5 Presence of coronary angioplasty implant and graft; Z86.73 Personal history of transient ischemic attack (TIA), and cerebral infarction without residual deficits; Z87.442 Personal history of urinary calculi; Z88.0 Allergy status to penicillin; Z88.2 Allergy status to sulfonamides; Z88.8 Allergy status to other drugs, medicaments and biological substances; I25.2 Old myocardial infarction; Z85.118 Personal history of other malignant neoplasm of bronchus and lung; Y93.89 Activity, other specified; Y92.89 Other specified places as the place of occurrence of the external cause; Y99.8 Other external cause status